=== PATIENT | male | born 1955 | race Caucasian/White ===

== ENCOUNTER 2016-05-01 11:10 | Inpatient (IN) | payer OTHER, MEDICARE ==
[2016-05-01] VITALS (7 sets, daily range): BP systolic 131–153; BP diastolic 70–82
[~2016-05-01] VITALS: Ht 172.7 cm; Wt 123.2 kg
[~2016-05-01 11:10] MED LIST: ALEV220C2 PO; ASPI81TA85 PO; GABA-283 PO; LOVA20TA2 PO; MULTCAP12 PO; NICOTINE 14 MG/24 HR TRANSDERMAL TD SCH; VALS1TAB47 PO
[2016-05-01] MEDS ORDERED: NORCO, ANEXSIA 5/325MG TABLET (HYDROcodone/ACETAMINOPHEN) As Ordered ONE (11:45)
[2016-05-01] MEDS ORDERED: MORPHINE 4 MG/ML 1ML SYRINGE As Ordered ONE (12:17)
--- NOTE | 2016-05-01 12:24 | REP ---
Four view left femur series 05/01/2016 Indication: Trauma Findings: Displaced spiral fracture is noted within the mid to distal femoral shaft with medial displacement by one shaft width and mild posterior displacement and posterior angulation of distal fracture fragment. There is small amount of foreshortening of fracture fragments as well. The left hip is without acute fracture or dislocation Multiple surgical clips are projected over the lower central pelvis in the area of prostate. Impression: Displaced mid to distal left femoral shaft spiral fracture, with alignment as above. Signed by Elo Mares MD 05/01/2016 12:15 P
[2016-05-01 12:45] LABS: BASO # 0.1 K/mm3 (0.0-0.2); BASO % 0.5 % (0.0-1.0); EOS # 0.4 K/mm3 (0.0-0.50); EOS % 3.9 % (0.0-3.0); LARGE UNSTAINED CELL # 0.2 K/mm3 (0.0-0.4); LARGE UNSTAINED CELL % 1.8 % (0.0-4.0); LYMPH # 1.4 K/mm3 (1.5-4.5); LYMPH % 12.4 % (24.0-44.0); MEAN CORPUSCULAR HEMOGLOBIN 31.2 pg (27.0-33.0); MEAN CORPUSCULAR HGB CONC 34.4 g/dl (32.0-36.5); MEAN CORPUSCULAR VOLUME 90.8 fl (80.0-96.0); MONO # 0.5 K/mm3 (0.0-0.8); MONO % 4.7 % (0.0-5.0); NEUTROPHILS # 8.8 K/mm3 (1.8-7.7); NEUTROPHILS % 76.7 % (36.0-66.0); PLATELET COUNT, AUTOMATED 247 k/mm3 (150-450); RED CELL DISTRIBUTION WIDTH 12.6 % (11.5-14.5); WHITE BLOOD COUNT 11.5 K/mm3 (4.0-10.0)
[2016-05-01 12:51] LABS: INR 0.9
[2016-05-01] MEDS ORDERED: NORC5TAB PO (12:52)
[2016-05-01] MEDS ORDERED: VITMTA PO (12:52)
[2016-05-01] MEDS ORDERED: GABA300C3 PO (12:52)
[2016-05-01] MEDS ORDERED: MORPHINE 2 MG/ML 1ML SYRINGE IV PRN (13:00)
[2016-05-01] MEDS ORDERED: ACETAMINOPHEN TAB 650MG DOSE (2X325MG) PO PRN (13:00)
[2016-05-01] MEDS ORDERED: PERCOCET 5MG/325MG TAB PO PRN ×2 (13:00→18:00)
[2016-05-01] MEDS ORDERED: ONDANSETRON 4MG/2ML VIAL (J2405) IV PRN ×2 (13:00→18:00)
[2016-05-01 13:02] LABS: ANION GAP 10 MEQ/L (8-16); BLOOD UREA NITROGEN 16 MG/DL (7-18); CALCIUM LEVEL 9.1 MG/DL (8.8-10.2); CARBON DIOXIDE LEVEL 25 MEQ/L (21-32); CHLORIDE LEVEL 104 MEQ/L (98-107); CREATININE FOR GFR 1.16 MG/DL (0.70-1.30); GLOMERULAR FILTRATION RATE > 60.0 (>49); GLUCOSE, FASTING 106 MG/DL (80-110); POTASSIUM SERUM 4.5 MEQ/L (3.5-5.1); SODIUM LEVEL 139 MEQ/L (136-145)
[2016-05-01] MEDS ORDERED: PROA1AER INH (13:03)
--- NOTE | 2016-05-01 13:31 | REP ---
TWO VIEW CHEST: Two views of the chest are performed. The left costophrenic angle is not visualized. The AP film is taken in a somewhat apical lordotic projection. No acute infiltrate is seen. There is elevation of the right hemidiaphragm, unchanged. The mediastinal silhouette is unchanged. The heart appears magnified. There are mild degenerative changes of the spine. IMPRESSION: Somewhat limited exam but no definite acute pulmonary disease. Signed by Mikey Hammond MD 05/01/2016 03:22 P
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
--- NOTE | 2016-05-01 14:04 | EDDOCDS ---
Nurse's Notes [facility] Name: Chencho Newman Age: 60 yrs Sex: Male : 1955 Arrival Date: 05/01/2016 Time: 11:10 Bed I6 Private MD: Nicolette Frazier E Diagnosis: Displaced transverse fracture of shaft of left femur;Fall due to ice and snow Presentation: 05/01 11:18 Presenting complaint: EMS states: pt was working and slipped and fell on ice and he dsf twisted his let prosthetic leg. pt c/o left quadriceps pain. Adult Sepsis Screening: The patient does not have new or worsening altered mentation. Patient's respiratory rate is less than 22. Systolic blood pressure is greater than 100. Patient has a qSOFA score of 0- Negative Sepsis Screen. Suicide/Homicide risk assessment- the patient denies having any suicidal and/or homicidal ideations and does not present with any other emotional, behavioral or mental health complaints. 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 Transition of care: patient was not received from another setting of care. 11:18 Acuity: CARLOS Level 4 dsf 11:18 Method Of Arrival: Ambulance dsf Triage Assessment: 11:24 General: Appears in no apparent distress, Behavior is appropriate for age, cooperative. dsf Pain: Location: left quadriceps and left knee Pain currently is 9 out of 10 on a pain scale. Quality of pain is described as sharp. Pt Declines HIV testing. Musculoskeletal: Reports pain in left quadriceps and left knee. Historical: - Allergies: no known allergies; - Home Meds: 1. valsartan 160 mg oral tab 1 tab once daily 2. multivitamin Oral tab 1 tablet daily (Last dose: 05/01/2016 05:30) 3. aspirin 81 mg Oral tab 1 tab once daily (Last dose: 05/01/2016 05:30) 4. Aleve 220 mg Oral tab 2 tab daily 5. lovastatin 20 mg Oral tab 1 tab once daily 6. gabapentin 300 mg Oral cap 2 caps as needed 7. hydrocodone 5 mg twice a day (Last dose: 05/01/2016 09:30) - PMHx: Hypercholesterolemia; Hypertension; - PSHx: Cataract Surgery- Left; left leg surgery; Carpal Tunnel Repair- Right; Tonsillectomy; - Social history: Smoking status: Patient uses tobacco products, current some day smoker. No barriers to communication noted, The patient speaks fluent Croatian, Speaks appropriately for age. - Family history: Not pertinent. - : The pt / caregiver states he / she is not on anticoagulants. Home medication list is obtained from the patient. - Exposure Risk Screening:: None identified. Screenin:49 Screening information is obtained from the patient. Fall risk: No risks identified. kr3 Assistance ADL's: requires no assistance with activities of daily living. Abuse/DV Screen: The patient / caregiver reports he/she is: not in a situation that causes fear, pain or injury. Nutritional screening: No deficits noted. Advance Directives: Currently, there is no health care proxy. home support is adequate. Assessment: 11:48 General: Appears in no apparent distress, Behavior is cooperative. Pain: Location: left kr3 quadriceps Pain currently is 10 out of 10 on a pain scale. Musculoskeletal: pain left thigh. 12:34 General: Appears in no apparent distress, well nourished, well groomed, Behavior is ttb appropriate for age, cooperative, pleasant. Pain: Location: left femur only with movement. Neurological: Level of Consciousness is awake, alert, Oriented to person, place, time, Speech is normal, Facial symmetry appears normal. Cardiovascular: Chest pain is denied. Respiratory: No deficits noted. Airway is patent Respiratory effort is even, unlabored, Denies cough, shortness of breath. GI: Denies nausea, vomiting, pain. Derm: Skin is normal. Injury Description: pt fell from standing. 13:35 General: Appears in no apparent distress, Behavior is appropriate for age, resting rs3 comfortable. pain remains same. admitting provider with patient. Ordered ECG done. . 13:59 Reassessment: Patient appears in no apparent distress at this time. pt continues to be ttb comfortable with no movement. Pain with movement reported. NAD while laying on stretcher. PA in speaking with pt. Admission RN in with pt at this time as well. OR calling stating ready for pt. remains at bedside. Questions addressed.. Neurological: Level of Consciousness is awake, alert. Cardiovascular: Chest pain is denied. Respiratory: No deficits noted. Airway is patent Respiratory effort is even, unlabored, Denies cough, shortness of breath. GI: Denies nausea, vomiting. 13:59 General: pt taken to CT then to OR.. ttb Vital Signs: 11:14 BP 163 / 82; Pulse 78; Resp 18; Temp 97.0(T); Pulse Ox 95% on R/A; Weight 120.2 kg; [facility] Height 5 ft. 8 in. (172.72 cm); Pain 10/10; 13:56 BP 139 / 75; Pulse 75; Resp 18; Temp 98.0; Pulse Ox 98% on R/A; Pain 0/10; ttb 11:14 Body Mass Index 40.29 (120.20 kg, 172.72 cm) [facility] Vitals: 11:14 Log In Time N/A - ambulance arrival. [facility] ED Course: 11:13 Patient visited by Ever Kruse. dem1 11:13 Nicolette Frazier is Private Physician. [facility] 11:13 Patient moved to Waiting dem1 11:14 Patient moved to Pre RCE dem1 11:19 Triage Initiated dsf 11:25 Patient moved to Triage 2 dsf 11:28 Dannie Ash PA-C is PHCP. cc10 11:28 Ya Casiano MD is Attending Physician. cc10 11:30 Patient visited by Dannie Ash PA-C. cc10 11:30 Patient visited by Dannie Ash PA-C. cc10 11:48 Patient moved to TR1 dsf 11:49 The patient / caregiver is instructed regarding the plan of care and ED course. Patient kr3 has correct armband on for positive identification. 11:58 Patient moved to I / kr3 12:29 Kevan Mccurdy DO is Hospitalizing Provider. cc10 12:33 Type & Screen Sent. ttb 12:33 Pt & Aptt Sent. ttb 12:34 BMP Sent. ttb 12:34 CBC with Diff Sent. ttb 12:34 Inserted peripheral IV: 20gauge IV in right antecubital area and blood collected. ttb Patient tolerated the procedure well. Labs drawn. (by ED staff). 12:35 Patient visited by Nereida Vasquez RN. ttb 12:35 Femur Returned. EDMS 12:40 Patient visited by Paige Amos RN. dmr 13:04 [facility] Payment Agreement was scanned into [employer] and attached to record. mm15 13:55 Admission Orders was scanned into [employer] and attached to record. jrd 13:58 No procedures done that require assistance. ttb 14:03 Chest, 2 View (pa\E\lat) Returned. EDMS Administered Medications: 11:48 Drug: HYDROcodone-acetaminophen 1 tabs [hydrocodone 5 mg-acetaminophen 325 mg tablet (1 kr3 tabs)] Route: PO; 12:30 Drug: NS 0.9% 1000 ml [sodium chloride 0.9 % intravenous solution] Route: IV; Rate: 250 ttb mL/hr; Site: right antecubital; 12:30 Drug: morphine 4 mg [morphine 4 mg/mL intravenous cartridge (1 mL)] Route: IVP; Site: ttb right antecubital; Order Results: Lab Order: CBC with Diff; SPEC'M 05/01/16 12:31 Test: WHITE BLOOD COUNT; Value: 11.5; Range: 4.0-10.0; Abnormal: Above high normal; Units: K/mm3; Status: F Test: RED BLOOD COUNT; Value: 4.87; Range: 4.30-6.10; Units: M/mm3; Status: F Test: HEMOGLOBIN; Value: 15.2; Range: 14.0-18.0; Units: g/dl; Status: F Test: HEMATOCRIT; Value: 44.2; Range: 42.0-52.0; Units: %; Status: F Test: MEAN CORPUSCULAR VOLUME; Value: 90.8; Range: 80.0-96.0; Units: fl; Status: F Test: MEAN CORPUSCULAR HEMOGLOBIN; Value: 31.2; Range: 27.0-33.0; Units: pg; Status: F Test: MEAN CORPUSCULAR HGB CONC; Value: 34.4; Range: 32.0-36.5; Units: g/dl; Status: F Test: RED CELL DISTRIBUTION WIDTH; Value: 12.6; Range: 11.5-14.5; Units: %; Status: F Test: PLATELET COUNT, AUTOMATED; Value: 247; Range: 150-450; Units: k/mm3; Status: F Test: NEUTROPHILS %; Value: 76.7; Range: 36.0-66.0; Abnormal: Above high normal; Units: %; Status: F Test: LYMPH %; Value: 12.4; Range: 24.0-44.0; Abnormal: Below low normal; Units: %; Status: F Test: MONO %; Value: 4.7; Range: 0.0-5.0; Units: %; Status: F Test: EOS %; Value: 3.9; Range: 0.0-3.0; Abnormal: Above high normal; Units: %; Status: F Test: BASO %; Value: 0.5; Range: 0.0-1.0; Units: %; Status: F Test: LARGE UNSTAINED CELL %; Value: 1.8; Range: 0.0-4.0; Units: %; Status: F Test: NEUTROPHILS #; Value: 8.8; Range: 1.8-7.7; Abnormal: Above high normal; Units: K/mm3; Status: F Test: LYMPH #; Value: 1.4; Range: 1.5-4.5; Abnormal: Below low normal; Units: K/mm3; Status: F Test: MONO #; Value: 0.5; Range: 0.0-0.8; Units: K/mm3; Status: F Test: EOS #; Value: 0.4; Range: 0.0-0.50; Units: K/mm3; Status: F Test: BASO #; Value: 0.1; Range: 0.0-0.2; Units: K/mm3; Status: F Test: LARGE UNSTAINED CELL #; Value: 0.2; Range: 0.0-0.4; Units: K/mm3; Status: F Lab Order: [facility]; SPEC'M 05/01/16 12:31 Test: GLUCOSE, FASTING; Value: 106; Range: 80-110; Units: MG/DL; Status: F Test: BLOOD UREA NITROGEN; Value: 16; Range: 7-18; Units: MG/DL; Status: F Test: CREATININE FOR GFR; Value: 1.16; Range: 0.70-1.30; Units: MG/DL; Status: F Test: GLOMERULAR FILTRATION RATE; Value: > 60.0; Range: >49; Status: F Test: SODIUM LEVEL; Value: 139; Range: 136-145; Units: MEQ/L; Status: F Test: POTASSIUM SERUM; Value: 4.5; Range: 3.5-5.1; Units: MEQ/L; Status: F Test: CHLORIDE LEVEL; Value: 104; Range: 98-107; Units: MEQ/L; Status: F Test: CARBON DIOXIDE LEVEL; Value: 25; Range: 21-32; Units: MEQ/L; Status: F Test: ANION GAP; Value: 10; Range: 8-16; Units: MEQ/L; Status: F Test: CALCIUM LEVEL; Value: 9.1; Range: 8.8-10.2; Units: MG/DL; Status: F Test Note: ; Units are mL/min/1.73 m2 Chronic Kidney Disease Staging per NKF: Stage I & II GFR >=60 Normal to Mildly Decreased Stage III GFR 30-59 Moderately Decreased Stage IV GFR 15-29 Severely Decreased Stage V GFR <15 Very Little GFR Left ESRD GFR <15 on NAPRAPATH Lab Order: Pt & Aptt; SPEC'M 05/01/16 12:31 Test: PROTHROMBIN TIME; Value: 12.3; Range: 12.3-14.5; Units: SECONDS; Status: F Test: INR; Value: 0.90; Status: F Test: PARTIAL THROMBOPLASTIN TIME; Value: 25.1; Range: 26.6-37.1; Abnormal: Below low normal; Units: SECONDS; Status: F Test Note: ; THERAPUTIC HUMAN INR VALUES INDICATIONS NORMAL RANGES PROPHYLAXIS/TREATMENT OF: VENOUS THROMBOSIS 2.0-3.0 PULMONARY EMBOLISM 2.0-3.0 PREVENTION OF SYSTEMIC EMBOLISM FROM: TISSUE HEART VALVES 2.0-3.0 ACUTE MYOCARDIAL INFARCTION 2.0-3.0 VALVULAR HEART DISEASE 2.0-3.0 ATRIAL FIBRILLATION 2.0-3.0 MECHANICAL VALVES(HIGH RISK) 2.5-3.5 RECURRENT MYOCARDIAL INFARCTION 2.5-3.5 Lab Order: Type & Screen; SPEC'M 05/01/16 13:25 Test: BLOOD TYPE; Value: A POS; Status: F Radiology Order: Femur Test: Femur REASON FOR EXAMINATION: Trauma; Four view left femur series 05/01/2016; ; Indication: Trauma; ; Findings: Displaced spiral fracture is noted within the mid to distal femoral; shaft with medial displacement by one shaft width and mild posterior displacement; and posterior angulation of distal fracture fragment. There is small amount of; foreshortening of fracture fragments as well.; ; The left hip is without acute fracture or dislocation; ; Multiple surgical clips are projected over the lower central pelvis in the area; of prostate.; ; Impression: Displaced mid to distal left femoral shaft spiral fracture, with; alignment as above.; ; ; Signed by; Elo Mares MD 05/01/2016 12:15 P; Radiology Order: Chest, 2 View (pa\E\lat) Test: Chest, 2 View (pa\E\lat) REASON FOR EXAMINATION: pre-op; TWO VIEW CHEST:; ; Two views of the chest are performed. The left costophrenic angle is not; visualized. The AP film is taken in a somewhat apical lordotic projection. No; acute infiltrate is seen. There is elevation of the right hemidiaphragm,; unchanged. The mediastinal silhouette is unchanged. The heart appears; magnified. There are mild degenerative changes of the spine.; ; IMPRESSION:; Somewhat limited exam but no definite acute pulmonary disease.; ; Unreviewed; Outcome: 12:29 Decision to Hospitalize by Provider. cc10 13:56 Discharge Assessment: Patient awake, alert and oriented x 3. No cognitive and/or ttb functional deficits noted. Patient verbalized understanding of disposition instructions. Patient awake and alert. patient administered narcotics - yes. Patient was admitted to the hospital or transferred to another facility. The following High Risk Discharge criteria are identified: Yes, admit to OR. Admitted to OR accompanied by nurse, family with patient, via stretcher, with chart. Condition: stable. Instructed on Admission process / OR admission process. Property given to family member, has clothing, watch, gold ring. 13:59 CT Study completed. ttb 14:03 Patient left the ED. ttb Signatures: Dispatcher [employer] EDMS Paige AmosRN RN [facility] Ryann PopeRN RN angelika3 Kaylee Hoover RN RN rs3 Bushra Masterson RN RN dsf Mack, Demeishia dem1 Conner, Teresa, RN RN ttb Damaris Gutierrez mm15 Dannie Ash, PA-C PA-C cc10 Juan Valdez PCA PCA jrd Corrections: (The following items were deleted from the chart) 13:59 13:56 No special radiology studies were completed ttb ttb MTDD
--- NOTE | 2016-05-01 14:04 | EDDOCDS ---
Physician Documentation [facility] Name: Chencho Newman Age: 60 yrs Sex: Male : 1955 Arrival Date: 05/01/2016 Time: 11:10 Bed I6 / Private MD: Nicolette Frazier E Disposition: 05/01/16 12:29 Hospitalization ordered by Kevan Mccurdy for Inpatient Admission. Preliminary diagnosis are Displaced transverse fracture of shaft of left femur, Fall due to ice and snow. - Bed requested for 5 [place]. - Status is Inpatient Admission. ttb - Condition is Stable. - Problem is new. - Symptoms have improved. Historical: - Allergies: no known allergies; - Home Meds: 1. valsartan 160 mg oral tab 1 tab once daily 2. multivitamin Oral tab 1 tablet daily (Last dose: 05/01/2016 05:30) 3. aspirin 81 mg Oral tab 1 tab once daily (Last dose: 05/01/2016 05:30) 4. Aleve 220 mg Oral tab 2 tab daily 5. lovastatin 20 mg Oral tab 1 tab once daily 6. gabapentin 300 mg Oral cap 2 caps as needed 7. hydrocodone 5 mg twice a day (Last dose: 05/01/2016 09:30) - PMHx: Hypercholesterolemia; Hypertension; - PSHx: Cataract Surgery- Left; left leg surgery; Carpal Tunnel Repair- Right; Tonsillectomy; - Social history: Smoking status: Patient uses tobacco products, current some day smoker. No barriers to communication noted, The patient speaks fluent Lithuanian, Speaks appropriately for age. - Family history: Not pertinent. - : The pt / caregiver states he / she is not on anticoagulants. Home medication list is obtained from the patient. - Exposure Risk Screening:: None identified. Vital Signs: 05/01 11:14 BP 163 / 82; Pulse 78; Resp 18; Temp 97.0(T); Pulse Ox 95% on R/A; Weight 120.2 kg / dem1 265 lbs; Height 5 ft. 8 in. (172.72 cm); Pain 10/10; 13:56 BP 139 / 75; Pulse 75; Resp 18; Temp 98.0; Pulse Ox 98% on R/A; Pain 0/10; ttb 11:14 Body Mass Index 40.29 (120.20 kg, 172.72 cm) dem1 MDM: 11:34 HYDROcodone-acetaminophen 5 mg-325 mg 1 tabs PO once ordered. cc10 11:35 Femur Ordered. EDMS 12:00 NOTHING BY MOUTH+DIET ordered. EDMS 12:10 IV Saline Lock ordered. cc10 12:10 NS 0.9% 1000 ml IV at 250 mL/hr continuous ordered. cc10 12:11 morphine 4 mg IVP once ordered. cc10 12:11 CBC with Diff Ordered. EDMS 12:11 BMP Ordered. EDMS 12:11 Pt & Aptt Ordered. EDMS 12:11 Type & Screen Ordered. EDMS 12:24 Chest, 2 View (pa\E\lat) Ordered. EDMS 12:24 Misc Manual Arts Therapy Teacher Order ordered. cc10 12:24 Misc Manual Arts Therapy Teacher Order ordered. cc10 12:26 ECG WITH READING ER PHYS+CARDIAG ordered. EDMS 12:36 BED REQUEST+ADM ordered. EDMS 13:00 Financial registration complete. mm15 13:01 PHYSICAL THERAPY EVAL & TREAT ordered. EDMS 13:02 Admission / Observation Status ordered. EDMS 13:02 NPO DIET ordered. EDMS 13:04 [facility] Payment Agreement was scanned into [employer] and attached to record. mm15 13:46 Femur Ordered. EDMS 13:49 Misc Manual Arts Therapy Teacher Order complete. jrd 13:49 [facility] Order complete. jrd 13:50 CT-Femur WITHOUT CONTRAST Ordered. EDMS 13:55 Admission Orders was scanned into [employer] and attached to record. jrd Administered Medications: 11:48 Drug: HYDROcodone-acetaminophen 1 tabs [hydrocodone 5 mg-acetaminophen 325 mg tablet (1 kr3 tabs)] Route: PO; 12:30 Drug: NS 0.9% 1000 ml [sodium chloride 0.9 % intravenous solution] Route: IV; Rate: 250 ttb mL/hr; Site: right antecubital; 12:30 Drug: morphine 4 mg [morphine 4 mg/mL intravenous cartridge (1 mL)] Route: IVP; Site: ttb right antecubital; Signatures: Dispatcher [employer] EDMS Beth Guillen RN RN mcp Fuller, Desiree, RN RN dsf Conner, Teresa, RN RN ttb Damaris Gutierrez mm15 Dannie Ash PA-C PA-C cc10 Juan Valdez, DESIGN ENGINEER AGRICULTURAL EQUIPMENT DESIGN ENGINEER AGRICULTURAL EQUIPMENT jrd Ryann Pope RN kr3 The chart was reviewed and I authenticate all verbal orders and agree with the evaluation and treatment provided.Attachments: 13:04 [facility] Payment Agreement mm15 13:55 Admission Orders jrd MTDD
[2016-05-01] MEDS ORDERED: ALBUTEROL 90 MCG/ACT 8GM HFA INHALER INH PRN (14:15)
[2016-05-01] MEDS ORDERED: MIDAZOLAM INJ 2 MG/2 ML VIAL (J2250) As Ordered ONE (14:30)
[2016-05-01] MEDS ORDERED: fentaNYL 100 MCG/2 ML INJECTION (J3010) As Ordered ONE (14:30)
[2016-05-01] MEDS ORDERED: ceFAZolin 2 GM/D5W 50 ML IV BAG (J0690) As Ordered ONE (14:51)
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
--- NOTE | 2016-05-01 15:05 | REP ---
CT of the left femur 05/01/2016 Indication: Fall, injury Comparison: Radiographs of the left femur performed earlier today Technique: 3 mm continuous spiral axial sections were through the left lower pelvis and left femur without contrast. Sagittal and coronal reconstructed images were subsequently created provided for interpretation Findings: The left hip is without acute fracture dislocation. Included portions of the left winnie pelvis are intact. There is a spiral displaced fracture of the distal third femoral shaft with medial displacement of distal fracture fragment by one shaft with and with less posterior displacement and posterior angulation distal fracture fragment. The visualized portions of the left hip, acetabulum, superior pubic rami appear intact and the visualized portion Impression 1. Displaced spiral fracture of the distal third left femur; alignment is mildly improved, yet further reduction is needed Signed by Elo Mares MD 05/01/2016 02:56 P
[2016-05-01] MEDS ORDERED: BUPIVACAINE/EPIN 0.25% 30 ML VIAL As Ordered ONE (15:53)
[2016-05-01] MEDS ORDERED: PROPOFOL 200 MG/20 ML VIAL As Ordered ONE (15:54)
[2016-05-01] MEDS ORDERED: ceFAZolin 1GM INJ (J0690) As Ordered ONE (16:05)
[2016-05-01] MEDS ORDERED: PHENYLephrine HCL 500 MCG/5 ML (100MCG/ML) SYRINGE (J2370) As Ordered ONE (16:17)
[2016-05-01] MEDS ORDERED: BUPIVACAINE/EPIN 0.25% 30 ML VIAL XX ONE (17:07)
[2016-05-01] MEDS ORDERED: ceFAZolin 1GM INJ (J0690) XX ONE (17:07)
--- NOTE | 2016-05-01 17:48 | REP ---
C-arm views of the mid to distal left femur 05/01/2016 Indication left femur fracture Comparison: CT left femur 05/01/2016 as well as left femur radiographs 05/01/2016 42 seconds of c-arm fluoroscopy time were provided to of Department of Othopedic Surgery who performed ORIF of the mid to distal left femur for spiral fracture. There is a lateral mid to distal femoral side plate with multiple transverse interlocking screws. The alignment is anatomic in the visualized/included portions of the left mid to distal femur. Seven images were recorded and are available for review on PACS. Impression: Status post ORIF of the left femur for displaced mid to distal spiral fracture. The included portions of the left femur are in anatomic alignment post ORIF Signed by Elo Mares MD 05/01/2016 05:40 P
[2016-05-01] MEDS ORDERED: LR 1,000 ML IV SCH (18:00)
[2016-05-01] MEDS ORDERED: fentaNYL 100 MCG/2 ML INJECTION (J3010) IV PRN (18:00)
[2016-05-01] MEDS ORDERED: METOCLOPRAMIDE INJ 10MG/2ML VIAL (J2765) IV PRN (18:00)
[2016-05-01] MEDS ORDERED: D5W/0.45% SODIUM CHLORIDE 1,000 ML IV SCH (18:00)
[2016-05-01] MEDS ORDERED: PROMETHAZINE INJ 25 MG/ML VIAL (J2550) IV PRN (18:00)
[2016-05-01] MEDS ORDERED: MEPERIDINE INJ 25 MG/ML VIAL (J2175) IV PRN (18:00)
[2016-05-01] MEDS: HYDROmorphone HCL 1 MG/ML SYRINGE (J1170) IV PRN ×2 (18:57→22:12)
[2016-05-01] MEDS: SIMVASTATIN 20 MG TAB PO SCH (20:26)
[2016-05-01] MEDS: DOCUSATE SODIUM 100 MG CAP PO SCH (20:26)
[2016-05-01] MEDS: PERCOCET 5MG/325MG TAB PO PRN (20:28)
[2016-05-02] MEDS: PERCOCET 5MG/325MG TAB PO PRN ×5 (00:28→20:15)
--- NOTE | 2016-05-02 02:24 | CR ---
DATE OF CONSULTATION: 05/01/2016 This patient was seen to evaluate left distal femur fracture. Initially, the patient was seen today by our physician car rental sales assistant, Betsy Zhu PA-C and I supervised and reviewed her documentation, which was accurate. In addition to this, I did appreciate that the patient had in his amputation stump an anterior distal wound, which had been present longstanding. When the patient was seen and evaluated, I did discuss the distal wound as well as the procedure we are proposing and I did complete a consent document which involved a cecilio discussion of the procedure proposed, alternatives including doing nothing and risks including, but not limited to pain, failure, need for more surgery, infection and other issues. I specifically talked to the patient about the increased risk of infection at this distal wound and he does understand. The patient's distal stump has been managed in the past by Dr. Tyshawn Bailey, who has operated in this area. We may need to have the patient seen for medical charge entry specialist and/or Dr. Bailey and with respect to try to get this wound to close. I have also talked to the patient about his smoking habits and encouraged him strongly to engage in smoking cessation since both the healing of his distal femoral fracture, as well as the distal wound probably depends on his smoking cessation. For further details, please refer to the medical record, as well as physician car rental sales assistant Marko's notes.
[2016-05-02 03:00] VITALS: BP 138/74
[2016-05-02] MEDS: HYDROmorphone HCL 1 MG/ML SYRINGE (J1170) IV PRN ×3 (03:45→13:26)
[2016-05-02 06:00] VITALS: BP 174/85
[2016-05-02 07:04] LABS: MEAN CORPUSCULAR HEMOGLOBIN 30.9 pg (27.0-33.0); MEAN CORPUSCULAR HGB CONC 32.8 g/dl (32.0-36.5); MEAN CORPUSCULAR VOLUME 94.1 fl (80.0-96.0); RED CELL DISTRIBUTION WIDTH 13.6 % (11.5-14.5); WHITE BLOOD COUNT 11.1 K/mm3 (4.0-10.0)
[2016-05-02 07:19] LABS: ANION GAP 7 MEQ/L (8-16); BLOOD UREA NITROGEN 15 MG/DL (7-18); CALCIUM LEVEL 8.7 MG/DL (8.8-10.2); CARBON DIOXIDE LEVEL 30 MEQ/L (21-32); CHLORIDE LEVEL 102 MEQ/L (98-107); CREATININE FOR GFR 1.06 MG/DL (0.70-1.30); GLOMERULAR FILTRATION RATE > 60.0 (>49); GLUCOSE, FASTING 115 MG/DL (80-110); POTASSIUM SERUM 4.2 MEQ/L (3.5-5.1); SODIUM LEVEL 139 MEQ/L (136-145)
[2016-05-02] MEDS ORDERED: ISOVUE-370 76% 100ML VIAL (Q9967) As Ordered ONE (08:48)
[2016-05-02] MEDS ORDERED: GABAPENTIN 300 MG CAP PO PRN (09:00)
[2016-05-02 10:00] VITALS: BP 143/78
[2016-05-02] MEDS: DOCUSATE SODIUM 100 MG CAP PO SCH ×2 (10:17→20:14)
[2016-05-02] MEDS: MULTIVITAMINS/MINERALS THERAP 1 TAB PO SCH (10:17)
[2016-05-02] MEDS: MIRALAX *UNIT DOSE* 17GM PACKET PO SCH (10:17)
[2016-05-02] MEDS: ASPIRIN 81 MG CHEW TABLET PO SCH (10:18)
[2016-05-02] MEDS: VALSARTAN 80 MG TAB (DIOVAN) PO SCH (10:18)
--- NOTE | 2016-05-02 10:31 | REP ---
LEFT FEMUR, FOUR VIEWS: HISTORY: Fracture. COMPARISON: 05/01/2016. The patient is status post ORIF of a comminuted fracture of the distal femur. A fixation plate and screws are present. There is no dislocation. IMPRESSION: The patient is status post ORIF of a comminuted fracture of the distal femur. There is anatomic alignment. Signed by Hang Osborn MD 05/02/2016 10:33 A
--- NOTE | 2016-05-02 10:52 | REP ---
CTA abdomen and pelvis with bilateral lower extremity arteriogram/runoff: Indication: Prior left [id number] amputation; assess arterial perfusion. Comparison: CT abdomen with and without contrast 03/06/2015 from I. Technique: Following IV contrast administration of 100 ml Isovue 370 mg/ml IV, 3 mm contiguous spiral axial sections were performed of the abdomen pelvis with lower extremity runoff. Findings: The area of parenchymal disease within the right middle lobe most compatible with atelectatic changes and/or scarring does represent interval change. There is minimal dependent atelectasis and/or fibrotic scarring. There is borderline aneurysmal dilatation of the proximal abdominal aorta distal to the aortic root measuring 4 x 4.1 cm. The heart is upper normal size. There is moderate diffuse fatty infiltration of liver. Spleen and pancreas are normal. Gallbladder is mildly distended without visualized stones, wall thickening or biliary dilatation. Minimal thickening of the adrenal glands is noted bilaterally, stable. There is moderate fluid identified within the stomach. The small bowel is without obstruction. The terminal ileum and appendix are without inflammation. Abdominal aorta is of normal course and caliber. Mild atherosclerotic changes are noted in the abdominal aorta. The mesenteric arteries are patent and without focal narrowing. There are a few small retroperitoneal nodes, largest 8 mm diameter at the level of the proximal left common iliac artery. Bilateral common internal and external iliac arteries are patent. There is mild narrowing/attenuation seen diffusely within the left common and left external iliac arteries when compared to the contralateral right side. Bladder is partially contracted and also includes intraluminal air, contributed to by Barron catheter. There is moderate retained stool within the right and proximal transverse colon. Right lower extremity runoff: The right common femoral artery is patent. There is a normal appearing right superficial femoral artery. Profunda femoris artery is patent yet diffusely attenuated. The right proximal mid and distal superficial femoral arteries as well as popliteal arteries are patent. There is two vessel runoff to the right mid calf level with diffusely attenuated peroneal, moderately attenuated anterior tibial, mildly attenuated posterior tibial arteries. There is one vessel runoff to the right ankle with diffusely attenuated posterior tibial artery identified. Left lower extremity runoff: Left common femoral artery is mildly attenuated. There is moderate attenuation/narrowing of the left superficial femoral artery which cannot be seen below the distal superficial femoral artery level. The popliteal artery is occluded. There is no visualized runoff within the below the knee stump with diffusely atrophic calf muscles. There is no radiographic evidence of osteomyelitis. Tiny focus of subcutaneous air is seen at the anterior aspect of the tibial plateau on image 300 series 401. Impression:1. Diffusely attenuated left common femoral and left superficial femoral artery with occlusion above the origin of the left popliteal artery. The patient had prior left [id number] amputation. The patient has recent ORIF of the left femur for displaced spiral fracture. 2. Two vessel runoff to the right mid calf level with diffusely attenuated posterior tibial artery . One vessel runoff at right ankle ( posterior tibial artery) Signed by Elo Mares MD 05/04/2016 08:28 P
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
[2016-05-02] MEDS: SANTYL OINT 30GM TOP SCH (15:36)
[2016-05-02] MEDS ORDERED: WARFARIN SOD 5 MG TAB PO ONE (17:00)
--- NOTE | 2016-05-02 17:23 | REP ---
MRI LEFT LOWER LEG WITH AND WITHOUT GADOLINIUM: Patient is status-post [id number]-[id number] amputation. The remaining portion of the proximal left lower leg is imaged with the following sequences obtained: Axial T1, T2 STIR, sagittal T2 STIR, coronal STIR, sagittal T1 fat sat, post-IV gadolinium, sagittal and axial T1 fat sat with the intravenous administration of 24 mL of gadolinium. The remaining portion of the proximal tibia demonstrates central linear high signal on T2 and low signal on T1 compatible with a fluid filled central sinus tract. There is no bone marrow edema. There is no occult fracture. There is no abnormal enhancement or evidence of osteomyelitis. The proximal fibula also demonstrates no abnormal signal or enhancement. There is no current evidence of acute osteomyelitis. Ill-defined high signal is seen in the subcutaneous soft-tissues predominately anteriorly with some possible subtle areas of enhancement and possibly an element of cellulitis. A small pocket of fluid is seen in the distal soft-tissue just beneath the skin, measuring 9 mm in maximum diameter. No other fluid collection is seen. The central sinus tract filled with fluid in the proximal tibia has a diameter of approximately 1 cm maximally. IMPRESSION: Central fluid filled sinus tract in the remaining portion of the tibia, likely the sequela of chronic osteomyelitis. I do not see MR evidence of acute osteomyelitis at this time. Soft tissue edema with some possible subtle areas of enhancement and cellulitis. Small pocket of fluid is seen in the distal soft-tissue of the remaining left lower leg stump measuring about 9 mm in diameter. This could possibly represent a tiny abscess. Signed by Mikey Hammond MD 05/02/2016 05:29 P
[2016-05-02] MEDS: SIMVASTATIN 20 MG TAB PO SCH (20:14)
[2016-05-02 22:00] VITALS: BP 140/68
[2016-05-03] MEDS: PERCOCET 5MG/325MG TAB PO PRN ×5 (01:44→18:19)
[2016-05-03 06:00] VITALS: BP 130/77
[2016-05-03 06:49] LABS: MEAN CORPUSCULAR HEMOGLOBIN 30.8 pg (27.0-33.0); MEAN CORPUSCULAR HGB CONC 33.1 g/dl (32.0-36.5); MEAN CORPUSCULAR VOLUME 93.1 fl (80.0-96.0); RED CELL DISTRIBUTION WIDTH 13.7 % (11.5-14.5); WHITE BLOOD COUNT 10.4 K/mm3 (4.0-10.0)
[2016-05-03 06:55] LABS: INR 1.12
[2016-05-03 07:01] LABS: ANION GAP 5 MEQ/L (8-16); BLOOD UREA NITROGEN 16 MG/DL (7-18); CALCIUM LEVEL 8.8 MG/DL (8.8-10.2); CARBON DIOXIDE LEVEL 29 MEQ/L (21-32); CHLORIDE LEVEL 106 MEQ/L (98-107); CREATININE FOR GFR 0.85 MG/DL (0.70-1.30); GLOMERULAR FILTRATION RATE > 60.0 (>49); GLUCOSE, FASTING 101 MG/DL (80-110); POTASSIUM SERUM 4.3 MEQ/L (3.5-5.1); SODIUM LEVEL 140 MEQ/L (136-145)
--- NOTE | 2016-05-03 08:14 | ECGEPIP ---
Stationary ECG Study [facility] - ED Test Date: 2016-05-01 Pat Name: DERICK MILLER Department: Room: [place] [address] Gender: M Varnisher: milagros : 1955 Requested By: Dannie Ash PA-C Order Number: [id number] Reading MD: Adela Martines Measurements Intervals [place] Rate: 82 P: 56 ND: 160 QRS: 57 QRSD: 108 T: 8 QT: 361 QTc: 422 Interpretive Statements SINUS RHYTHM NSTTW ABNORMALITY DECREASED RATE/ECTOPY 05/26/14 Electronically Signed On 05-03-2016 8:13:54 EST by Adela Martines
[2016-05-03] MEDS: ASPIRIN 81 MG CHEW TABLET PO SCH (09:59)
[2016-05-03] MEDS: DOCUSATE SODIUM 100 MG CAP PO SCH ×2 (09:59→20:23)
[2016-05-03] MEDS: VALSARTAN 80 MG TAB (DIOVAN) PO SCH (10:00)
[2016-05-03] MEDS: MULTIVITAMINS/MINERALS THERAP 1 TAB PO SCH (10:00)
[2016-05-03] MEDS: MIRALAX *UNIT DOSE* 17GM PACKET PO SCH (10:01)
[2016-05-03] MEDS: SANTYL OINT 30GM TOP SCH (10:02)
[2016-05-03 14:00] VITALS: BP 152/73
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
--- NOTE | 2016-05-03 15:05 | EDDOCDS ---
Nurse's Notes [facility] Name: Chencho Newman Age: 60 yrs Sex: Male : 1955 Arrival Date: 05/01/2016 Time: 11:10 Bed I6 Private MD: Nicolette Frazier E Diagnosis: Displaced transverse fracture of shaft of left femur;Fall due to ice and snow Presentation: 05/01 11:18 Presenting complaint: EMS states: pt was working and slipped and fell on ice and he dsf twisted his let prosthetic leg. pt c/o left quadriceps pain. Adult Sepsis Screening: The patient does not have new or worsening altered mentation. Patient's respiratory rate is less than 22. Systolic blood pressure is greater than 100. Patient has a qSOFA score of 0- Negative Sepsis Screen. Suicide/Homicide risk assessment- the patient denies having any suicidal and/or homicidal ideations and does not present with any other emotional, behavioral or mental health complaints. 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 Transition of care: patient was not received from another setting of care. 11:18 Acuity: CARLOS Level 4 dsf 11:18 Method Of Arrival: Ambulance dsf Triage Assessment: 11:24 General: Appears in no apparent distress, Behavior is appropriate for age, cooperative. dsf Pain: Location: left quadriceps and left knee Pain currently is 9 out of 10 on a pain scale. Quality of pain is described as sharp. Pt Declines HIV testing. Musculoskeletal: Reports pain in left quadriceps and left knee. Historical: - Allergies: no known allergies; - Home Meds: 1. valsartan 160 mg oral tab 1 tab once daily 2. multivitamin Oral tab 1 tablet daily (Last dose: 05/01/2016 05:30) 3. aspirin 81 mg Oral tab 1 tab once daily (Last dose: 05/01/2016 05:30) 4. Aleve 220 mg Oral tab 2 tab daily 5. lovastatin 20 mg Oral tab 1 tab once daily 6. gabapentin 300 mg Oral cap 2 caps as needed 7. hydrocodone 5 mg twice a day (Last dose: 05/01/2016 09:30) - PMHx: Hypercholesterolemia; Hypertension; - PSHx: Cataract Surgery- Left; left leg surgery; Carpal Tunnel Repair- Right; Tonsillectomy; - Social history: Smoking status: Patient uses tobacco products, current some day smoker. No barriers to communication noted, The patient speaks fluent Romanian, Speaks appropriately for age. - Family history: Not pertinent. - : The pt / caregiver states he / she is not on anticoagulants. Home medication list is obtained from the patient. - Exposure Risk Screening:: None identified. Screenin:49 Screening information is obtained from the patient. Fall risk: No risks identified. kr3 Assistance ADL's: requires no assistance with activities of daily living. Abuse/DV Screen: The patient / caregiver reports he/she is: not in a situation that causes fear, pain or injury. Nutritional screening: No deficits noted. Advance Directives: Currently, there is no health care proxy. home support is adequate. Assessment: 11:48 General: Appears in no apparent distress, Behavior is cooperative. Pain: Location: left kr3 quadriceps Pain currently is 10 out of 10 on a pain scale. Musculoskeletal: pain left thigh. 12:34 General: Appears in no apparent distress, well nourished, well groomed, Behavior is ttb appropriate for age, cooperative, pleasant. Pain: Location: left femur only with movement. Neurological: Level of Consciousness is awake, alert, Oriented to person, place, time, Speech is normal, Facial symmetry appears normal. Cardiovascular: Chest pain is denied. Respiratory: No deficits noted. Airway is patent Respiratory effort is even, unlabored, Denies cough, shortness of breath. GI: Denies nausea, vomiting, pain. Derm: Skin is normal. Injury Description: pt fell from standing. 13:35 General: Appears in no apparent distress, Behavior is appropriate for age, resting rs3 comfortable. pain remains same. admitting provider with patient. Ordered ECG done. . 13:59 Reassessment: Patient appears in no apparent distress at this time. pt continues to be ttb comfortable with no movement. Pain with movement reported. NAD while laying on stretcher. PA in speaking with pt. Admission RN in with pt at this time as well. OR calling stating ready for pt. remains at bedside. Questions addressed.. Neurological: Level of Consciousness is awake, alert. Cardiovascular: Chest pain is denied. Respiratory: No deficits noted. Airway is patent Respiratory effort is even, unlabored, Denies cough, shortness of breath. GI: Denies nausea, vomiting. 13:59 General: pt taken to CT then to OR.. ttb Vital Signs: 11:14 BP 163 / 82; Pulse 78; Resp 18; Temp 97.0(T); Pulse Ox 95% on R/A; Weight 120.2 kg; [facility] Height 5 ft. 8 in. (172.72 cm); Pain 10/10; 13:56 BP 139 / 75; Pulse 75; Resp 18; Temp 98.0; Pulse Ox 98% on R/A; Pain 0/10; ttb 11:14 Body Mass Index 40.29 (120.20 kg, 172.72 cm) [facility] Vitals: 11:14 Log In Time N/A - ambulance arrival. [facility] ED Course: 11:13 Patient visited by Ever Kruse. dem1 11:13 Nicolette Frazier is Private Physician. [facility] 11:13 Patient moved to Waiting dem1 11:14 Patient moved to Pre RCE dem1 11:19 Triage Initiated dsf 11:25 Patient moved to Triage 2 dsf 11:28 Dannie Ash PA-C is PHCP. cc10 11:28 Ya Casiano MD is Attending Physician. cc10 11:30 Patient visited by Dannie Ash PA-C. cc10 11:30 Patient visited by Dannie Ash PA-C. cc10 11:48 Patient moved to TR1 dsf 11:49 The patient / caregiver is instructed regarding the plan of care and ED course. Patient kr3 has correct armband on for positive identification. 11:58 Patient moved to I / kr3 12:29 Kevan Mccurdy DO is Hospitalizing Provider. cc10 12:33 Type & Screen Sent. ttb 12:33 Pt & Aptt Sent. ttb 12:34 BMP Sent. ttb 12:34 CBC with Diff Sent. ttb 12:34 Inserted peripheral IV: 20gauge IV in right antecubital area and blood collected. ttb Patient tolerated the procedure well. Labs drawn. (by ED staff). 12:35 Patient visited by Nereida Vasquez RN. ttb 12:35 Femur Returned. EDMS 12:40 Patient visited by Paige Amos RN. dmr 13:04 [place] [place] was scanned into [employer] and attached to record. mm15 13:55 Admission Orders was scanned into [employer] and attached to record. jrd 13:58 No procedures done that require assistance. ttb 14:03 Chest, 2 View (pa\E\lat) Returned. EDMS 15:37 CT-Femur WITHOUT CONTRAST Returned. EDMS 18:11 Femur Returned. EDMS 05/02 08:05 T-Sheet-- Draft Copy was scanned into [employer] and attached to record. gb 13:05 ECG/EKG was scanned into [employer] and attached to record. gb Administered Medications: 05/01 11:48 Drug: HYDROcodone-acetaminophen 1 tabs [hydrocodone 5 mg-acetaminophen 325 mg tablet (1 kr3 tabs)] Route: PO; 12:30 Drug: NS 0.9% 1000 ml [sodium chloride 0.9 % intravenous solution] Route: IV; Rate: 250 ttb mL/hr; Site: right antecubital; 12:30 Drug: morphine 4 mg [morphine 4 mg/mL intravenous cartridge (1 mL)] Route: IVP; Site: ttb right antecubital; Order Results: Lab Order: CBC with Diff; SPEC'M 05/01/16 12:31 Test: WHITE BLOOD COUNT; Value: 11.5; Range: 4.0-10.0; Abnormal: Above high normal; Units: K/mm3; Status: F Test: RED BLOOD COUNT; Value: 4.87; Range: 4.30-6.10; Units: M/mm3; Status: F Test: HEMOGLOBIN; Value: 15.2; Range: 14.0-18.0; Units: g/dl; Status: F Test: HEMATOCRIT; Value: 44.2; Range: 42.0-52.0; Units: %; Status: F Test: MEAN CORPUSCULAR VOLUME; Value: 90.8; Range: 80.0-96.0; Units: fl; Status: F Test: MEAN CORPUSCULAR HEMOGLOBIN; Value: 31.2; Range: 27.0-33.0; Units: pg; Status: F Test: MEAN CORPUSCULAR HGB CONC; Value: 34.4; Range: 32.0-36.5; Units: g/dl; Status: F Test: RED CELL DISTRIBUTION WIDTH; Value: 12.6; Range: 11.5-14.5; Units: %; Status: F Test: PLATELET COUNT, AUTOMATED; Value: 247; Range: 150-450; Units: k/mm3; Status: F Test: NEUTROPHILS %; Value: 76.7; Range: 36.0-66.0; Abnormal: Above high normal; Units: %; Status: F Test: LYMPH %; Value: 12.4; Range: 24.0-44.0; Abnormal: Below low normal; Units: %; Status: F Test: MONO %; Value: 4.7; Range: 0.0-5.0; Units: %; Status: F Test: EOS %; Value: 3.9; Range: 0.0-3.0; Abnormal: Above high normal; Units: %; Status: F Test: BASO %; Value: 0.5; Range: 0.0-1.0; Units: %; Status: F Test: LARGE UNSTAINED CELL %; Value: 1.8; Range: 0.0-4.0; Units: %; Status: F Test: NEUTROPHILS #; Value: 8.8; Range: 1.8-7.7; Abnormal: Above high normal; Units: K/mm3; Status: F Test: LYMPH #; Value: 1.4; Range: 1.5-4.5; Abnormal: Below low normal; Units: K/mm3; Status: F Test: MONO #; Value: 0.5; Range: 0.0-0.8; Units: K/mm3; Status: F Test: EOS #; Value: 0.4; Range: 0.0-0.50; Units: K/mm3; Status: F Test: BASO #; Value: 0.1; Range: 0.0-0.2; Units: K/mm3; Status: F Test: LARGE UNSTAINED CELL #; Value: 0.2; Range: 0.0-0.4; Units: K/mm3; Status: F Lab Order: [facility]; SPEC'M 05/01/16 12:31 Test: GLUCOSE, FASTING; Value: 106; Range: 80-110; Units: MG/DL; Status: F Test: BLOOD UREA NITROGEN; Value: 16; Range: 7-18; Units: MG/DL; Status: F Test: CREATININE FOR GFR; Value: 1.16; Range: 0.70-1.30; Units: MG/DL; Status: F Test: GLOMERULAR FILTRATION RATE; Value: > 60.0; Range: >49; Status: F Test: SODIUM LEVEL; Value: 139; Range: 136-145; Units: MEQ/L; Status: F Test: POTASSIUM SERUM; Value: 4.5; Range: 3.5-5.1; Units: MEQ/L; Status: F Test: CHLORIDE LEVEL; Value: 104; Range: 98-107; Units: MEQ/L; Status: F Test: CARBON DIOXIDE LEVEL; Value: 25; Range: 21-32; Units: MEQ/L; Status: F Test: ANION GAP; Value: 10; Range: 8-16; Units: MEQ/L; Status: F Test: CALCIUM LEVEL; Value: 9.1; Range: 8.8-10.2; Units: MG/DL; Status: F Test Note: ; Units are mL/min/1.73 m2 Chronic Kidney Disease Staging per NKF: Stage I & II GFR >=60 Normal to Mildly Decreased Stage III GFR 30-59 Moderately Decreased Stage IV GFR 15-29 Severely Decreased Stage V GFR <15 Very Little GFR Left ESRD GFR <15 on FIRE PREVENTION CHIEF Lab Order: Pt & Aptt; SPEC'M 05/01/16 12:31 Test: PROTHROMBIN TIME; Value: 12.3; Range: 12.3-14.5; Units: SECONDS; Status: F Test: INR; Value: 0.90; Status: F Test: PARTIAL THROMBOPLASTIN TIME; Value: 25.1; Range: 26.6-37.1; Abnormal: Below low normal; Units: SECONDS; Status: F Test Note: ; THERAPUTIC HUMAN INR VALUES INDICATIONS NORMAL RANGES PROPHYLAXIS/TREATMENT OF: VENOUS THROMBOSIS 2.0-3.0 PULMONARY EMBOLISM 2.0-3.0 PREVENTION OF SYSTEMIC EMBOLISM FROM: TISSUE HEART VALVES 2.0-3.0 ACUTE MYOCARDIAL INFARCTION 2.0-3.0 VALVULAR HEART DISEASE 2.0-3.0 ATRIAL FIBRILLATION 2.0-3.0 MECHANICAL VALVES(HIGH RISK) 2.5-3.5 RECURRENT MYOCARDIAL INFARCTION 2.5-3.5 Lab Order: Type & Screen; SPEC'M 05/01/16 13:25 Test: BLOOD TYPE; Value: A POS; Status: F Test: AB SCREEN (INDIRECT VERO)GEL; Value: NEGATIVE; Status: F Lab Order: WOUND CULTURE AND GRAM ST; [facility]'M 05/01/16 15:38 Test: GRAM STAIN; Value: GRAM STAIN RESULT; Status: F Test: GRAM STAIN; Value: NO CELLS SEEN; Status: F Test: GRAM STAIN; Value: NO ORGANISMS SEEN; Status: F Lab Order: COMPLETE BLOOD COUNT; [facility]' 05/02/16 06:26 Test: WHITE BLOOD COUNT; Value: 11.1; Range: 4.0-10.0; Abnormal: Above high normal; Units: K/mm3; Status: F Test: RED BLOOD COUNT; Value: 4.36; Range: 4.30-6.10; Units: M/mm3; Status: F Test: HEMOGLOBIN; Value: 13.5; Range: 14.0-18.0; Abnormal: Below low normal; Units: g/dl; Status: F Test: HEMATOCRIT; Value: 41.1; Range: 42.0-52.0; Abnormal: Below low normal; Units: %; Status: F Test: MEAN CORPUSCULAR VOLUME; Value: 94.1; Range: 80.0-96.0; Units: fl; Status: F Test: MEAN CORPUSCULAR HEMOGLOBIN; Value: 30.9; Range: 27.0-33.0; Units: pg; Status: F Test: MEAN CORPUSCULAR HGB CONC; Value: 32.8; Range: 32.0-36.5; Units: g/dl; Status: F Test: RED CELL DISTRIBUTION WIDTH; Value: 13.6; Range: 11.5-14.5; Units: %; Status: F Test: PLATELET COUNT, AUTOMATED; Value: 233; Range: 150-450; Units: k/mm3; Status: F Lab Order: BASIC METABOLIC PROFILE; [facility] 05/02/16 06:26 Test: GLUCOSE, FASTING; Value: 115; Range: 80-110; Abnormal: Above high normal; Units: MG/DL; Status: F Test: BLOOD UREA NITROGEN; Value: 15; Range: 7-18; Units: MG/DL; Status: F Test: CREATININE FOR GFR; Value: 1.06; Range: 0.70-1.30; Units: MG/DL; Status: F Test: GLOMERULAR FILTRATION RATE; Value: > 60.0; Range: >49; Status: F Test: SODIUM LEVEL; Value: 139; Range: 136-145; Units: MEQ/L; Status: F Test: POTASSIUM SERUM; Value: 4.2; Range: 3.5-5.1; Units: MEQ/L; Status: F Test: CHLORIDE LEVEL; Value: 102; Range: 98-107; Units: MEQ/L; Status: F Test: CARBON DIOXIDE LEVEL; Value: 30; Range: 21-32; Units: MEQ/L; Status: F Test: ANION GAP; Value: 7; Range: 8-16; Abnormal: Below low normal; Units: MEQ/L; Status: F Test: CALCIUM LEVEL; Value: 8.7; Range: 8.8-10.2; Abnormal: Below low normal; Units: MG/DL; Status: F Test Note: ; Units are mL/min/1.73 m2 Chronic Kidney Disease Staging per NKF: Stage I & II GFR >=60 Normal to Mildly Decreased Stage III GFR 30-59 Moderately Decreased Stage IV GFR 15-29 Severely Decreased Stage V GFR <15 Very Little GFR Left ESRD GFR <15 on FIRE PREVENTION CHIEF Radiology Order: Femur Test: Femur REASON FOR EXAMINATION: Trauma; Four view left femur series 05/01/2016; ; Indication: Trauma; ; Findings: Displaced spiral fracture is noted within the mid to distal femoral; shaft with medial displacement by one shaft width and mild posterior displacement; and posterior angulation of distal fracture fragment. There is small amount of; foreshortening of fracture fragments as well.; ; The left hip is without acute fracture or dislocation; ; Multiple surgical clips are projected over the lower central pelvis in the area; of prostate.; ; Impression: Displaced mid to distal left femoral shaft spiral fracture, with; alignment as above.; ; ; Signed by; Elo Mares MD 05/01/2016 12:15 P; Radiology Order: Chest, 2 View (pa\E\lat) Test: Chest, 2 View (pa\E\lat) REASON FOR EXAMINATION: pre-op; TWO VIEW CHEST:; ; Two views of the chest are performed. The left costophrenic angle is not; visualized. The AP film is taken in a somewhat apical lordotic projection. No; acute infiltrate is seen. There is elevation of the right hemidiaphragm,; unchanged. The mediastinal silhouette is unchanged. The heart appears; magnified. There are mild degenerative changes of the spine.; ; IMPRESSION:; ; Somewhat limited exam but no definite acute pulmonary disease.; ; ; Signed by; Mikey Hammond MD 05/01/2016 03:22 P; Radiology Order: Femur Test: Femur REASON FOR EXAMINATION: LT FEMUR FX; C-arm views of the mid to distal left femur 05/01/2016; ; Indication left femur fracture; ; Comparison: CT left femur 05/01/2016 as well as left femur radiographs; 05/01/2016; ; 42 seconds of c-arm fluoroscopy time were provided to of Department of; Othopedic Surgery who performed ORIF of the mid to distal left femur for spiral; fracture. There is a lateral mid to distal femoral side plate with multiple; transverse interlocking screws. The alignment is anatomic in the; visualized/included portions of the left mid to distal femur.; ; Seven images were recorded and are available for review on PACS.; ; Impression: Status post ORIF of the left femur for displaced mid to distal; spiral fracture. The included portions of the left femur are in anatomic; alignment post ORIF; ; ; ; ; Signed by; Elo Mares MD 05/01/2016 05:40 P; Radiology Order: CT-Femur WITHOUT CONTRAST Test: CT-Femur WITHOUT CONTRAST REASON FOR EXAMINATION: FALL INJURY; CT of the left femur 05/01/2016; ; Indication: Fall, injury; ; Comparison: Radiographs of the left femur performed earlier today; ; Technique: 3 mm continuous spiral axial sections were through the left lower; pelvis and left femur without contrast. Sagittal and coronal reconstructed; images were subsequently created provided for interpretation; ; Findings: The left hip is without acute fracture dislocation. Included portions; of the left winnie pelvis are intact.; ; There is a spiral displaced fracture of the distal third femoral shaft with; medial displacement of distal fracture fragment by one shaft with and with less; posterior displacement and posterior angulation distal fracture fragment.; ; The visualized portions of the left hip, acetabulum, superior pubic rami appear; intact and the visualized portion; ; Impression; 1. Displaced spiral fracture of the distal third left femur; alignment is mildly; improved, yet further reduction is needed; ; ; Signed by; Elo Mares MD 05/01/2016 02:56 P; Outcome: 12:29 Decision to Hospitalize by Provider. cc10 13:56 Discharge Assessment: Patient awake, alert and oriented x 3. No cognitive and/or ttb functional deficits noted. Patient verbalized understanding of disposition instructions. Patient awake and alert. patient administered narcotics - yes. Patient was admitted to the hospital or transferred to another facility. The following High Risk Discharge criteria are identified: Yes, admit to OR. Admitted to OR accompanied by nurse, family with patient, via stretcher, with chart. Condition: stable. Instructed on Admission process / OR admission process. Property given to family member, has clothing, watch, gold ring. 13:59 CT Study completed. ttb 14:03 Patient left the ED. ttb Signatures: Dispatcher [employer] EDMS Priscilla Fernandez, Reg Reg gb Paige Amos,RN RN dmr Ryann Pope RN RN kr3 Kaylee Hoover RN RN rs3 Bushra MastersonRN RN dsEver Soliz dem1 Nereida Vasquez RN RN ttb Damaris Gutierrez mm15 Dannie Ash, PA-C PA-C cc10 Juan Valdez, DOMING[employer]IC[employer] jrd Corrections: (The following items were deleted from the chart) 13:59 13:56 No special radiology studies were completed ttb ttb Chart Complete MTDD
[2016-05-03] MEDS ORDERED: WARFARIN SOD 7.5 MG TAB PO ONE (17:00)
[2016-05-03] MEDS: SIMVASTATIN 20 MG TAB PO SCH (20:23)
[2016-05-03 22:00] VITALS: BP 146/69
[2016-05-04 06:00] VITALS: BP 149/72
[2016-05-04 06:43] LABS: ANION GAP 8 MEQ/L (8-16); BLOOD UREA NITROGEN 14 MG/DL (7-18); CARBON DIOXIDE LEVEL 28 MEQ/L (21-32); CHLORIDE LEVEL 107 MEQ/L (98-107); CREATININE FOR GFR 0.96 MG/DL (0.70-1.30); GLOMERULAR FILTRATION RATE > 60.0 (>49); GLUCOSE, FASTING 108 MG/DL (80-110); MEAN CORPUSCULAR HEMOGLOBIN 31.5 pg (27.0-33.0); MEAN CORPUSCULAR HGB CONC 32.8 g/dl (32.0-36.5); MEAN CORPUSCULAR VOLUME 95.9 fl (80.0-96.0); POTASSIUM SERUM 4.5 MEQ/L (3.5-5.1); RED CELL DISTRIBUTION WIDTH 13.6 % (11.5-14.5); SODIUM LEVEL 143 MEQ/L (136-145); WHITE BLOOD COUNT 10.7 K/mm3 (4.0-10.0)
[2016-05-04 06:59] LABS: INR 0.95
[2016-05-04] MEDS ORDERED: PERC5TAB6 PO (08:13)
[2016-05-04] MEDS ORDERED: COUM2.5T11 PO (08:13)
[2016-05-04] MEDS: MIRALAX *UNIT DOSE* 17GM PACKET PO SCH (08:44)
[2016-05-04] MEDS: PERCOCET 5MG/325MG TAB PO PRN ×3 (08:45→22:04)
[2016-05-04] MEDS: VALSARTAN 80 MG TAB (DIOVAN) PO SCH (08:45)
[2016-05-04] MEDS: ASPIRIN 81 MG CHEW TABLET PO SCH (08:46)
[2016-05-04] MEDS: MULTIVITAMINS/MINERALS THERAP 1 TAB PO SCH (08:46)
[2016-05-04] MEDS: DOCUSATE SODIUM 100 MG CAP PO SCH ×2 (08:46→20:09)
[2016-05-04] MEDS ORDERED: ENOXAPARIN 40 MG/0.4 ML SYRINGE (J1650) SC SCH (09:00)
[2016-05-04] MEDS: SANTYL OINT 30GM TOP SCH (10:02)
[2016-05-04] MEDS ORDERED: BACT800T5 PO (12:50)
[2016-05-04 14:00] VITALS: BP 139/70
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
[2016-05-04] MEDS ORDERED: FLEET ENEMA PR PRN (17:45)
[2016-05-04] MEDS: SIMVASTATIN 20 MG TAB PO SCH (20:09)
[2016-05-04 22:00] VITALS: BP 135/73
[2016-05-05 06:00] VITALS: BP 141/69
[2016-05-05 06:50] LABS: MEAN CORPUSCULAR HEMOGLOBIN 31.1 pg (27.0-33.0); MEAN CORPUSCULAR HGB CONC 33.2 g/dl (32.0-36.5); MEAN CORPUSCULAR VOLUME 93.5 fl (80.0-96.0); RED CELL DISTRIBUTION WIDTH 12.8 % (11.5-14.5); WHITE BLOOD COUNT 6.9 K/mm3 (4.0-10.0)
[2016-05-05 06:56] LABS: INR 1.13
[2016-05-05 07:14] LABS: ANION GAP 8 MEQ/L (8-16); BLOOD UREA NITROGEN 16 MG/DL (7-18); CARBON DIOXIDE LEVEL 30 MEQ/L (21-32); CHLORIDE LEVEL 107 MEQ/L (98-107); CREATININE FOR GFR 0.91 MG/DL (0.70-1.30); GLOMERULAR FILTRATION RATE > 60.0 (>49); GLUCOSE, FASTING 105 MG/DL (80-110); POTASSIUM SERUM 4.5 MEQ/L (3.5-5.1); SODIUM LEVEL 145 MEQ/L (136-145)
[2016-05-05] MEDS ORDERED: MAGNESIUM CITRATE 300 ML BTL PO ONE (07:15)
[2016-05-05] MEDS: PERCOCET 5MG/325MG TAB PO PRN ×3 (07:37→22:37)
[2016-05-05] MEDS: MULTIVITAMINS/MINERALS THERAP 1 TAB PO SCH (08:17)
[2016-05-05] MEDS: DOCUSATE SODIUM 100 MG CAP PO SCH ×2 (08:17→22:37)
[2016-05-05] MEDS: MIRALAX *UNIT DOSE* 17GM PACKET PO SCH (08:18)
[2016-05-05] MEDS: VALSARTAN 80 MG TAB (DIOVAN) PO SCH (08:18)
[2016-05-05] MEDS: SANTYL OINT 30GM TOP SCH (08:19)
[2016-05-05] MEDS ORDERED: MAGNESIUM CITRATE 300 ML BTL PO PRN (09:00)
[2016-05-05] MEDS ORDERED: ENOXAPARIN 40 MG/0.4 ML SYRINGE (J1650) SC SCH ×2 (09:00→15:00)
[2016-05-05] MEDS ORDERED: ISOVUE-300 61% 50ML VIAL (Q9967) As Ordered ONE (15:55)
[2016-05-05] MEDS ORDERED: WARFARIN SOD 10 MG TAB PO ONE (17:00)
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
[2016-05-05] MEDS ORDERED: HEPARIN SOD (PORCINE) 5000 UNITS/ML VIAL SQ ONE (18:30)
[2016-05-05 22:00] VITALS: BP 159/74
[2016-05-05] MEDS: SIMVASTATIN 20 MG TAB PO SCH (22:36)
[2016-05-06] MEDS: PERCOCET 5MG/325MG TAB PO PRN ×3 (05:45→22:09)
[2016-05-06 06:00] VITALS: BP 168/78
[2016-05-06 06:52] LABS: MEAN CORPUSCULAR HEMOGLOBIN 31.2 pg (27.0-33.0); MEAN CORPUSCULAR HGB CONC 34.1 g/dl (32.0-36.5); MEAN CORPUSCULAR VOLUME 91.5 fl (80.0-96.0); RED CELL DISTRIBUTION WIDTH 13.7 % (11.5-14.5); WHITE BLOOD COUNT 8.3 K/mm3 (4.0-10.0)
[2016-05-06 06:57] LABS: INR 1.11
[2016-05-06 07:19] LABS: ANION GAP 8 MEQ/L (8-16); BLOOD UREA NITROGEN 17 MG/DL (7-18); CALCIUM LEVEL 8.7 MG/DL (8.8-10.2); CARBON DIOXIDE LEVEL 30 MEQ/L (21-32); CHLORIDE LEVEL 104 MEQ/L (98-107); CREATININE FOR GFR 0.99 MG/DL (0.70-1.30); GLOMERULAR FILTRATION RATE > 60.0 (>49); GLUCOSE, FASTING 101 MG/DL (80-110); POTASSIUM SERUM 4.4 MEQ/L (3.5-5.1); SODIUM LEVEL 142 MEQ/L (136-145)
--- NOTE | 2016-05-06 09:03 | PHACANCOPD ---
PHARMACY VANCOMYCIN DOSING Pt Demographics Demographics Patient Age:60 , Weight:123.500 , Gender: male Adjusted Body Weight Date: 05/06/16, Adjusted Body Weight: [90.44] Kg Events Past 24 Hours Events Past 24 Hours: NO: Change in CrCl, Dialysis, Diuretic Therapy, Elevation in WBC, Fever, Other, Pending Diagnostics, Pending Procedures Vancomycin Vancomycin indication: CELLULITIS/TINY ABSCESS Vancomycin Target Ranges: 15-20 mcg/ml Vancomycin Load Y/N: Yes Load Dose Date Time Vancomycin Load Dose: 2G Date: 05/06/2016 Time: 0900 Vancomycin Dose Date: 05/06/16. Current Vancomycin Dose: [1G Q12H @1999] Intermittent Dosing?: No Labs Labs Item Value Date Time White Blood Count 10.7 K/mm3 H 05/04/16 0613 White Blood Count 6.9 K/mm3 05/05/16 0614 White Blood Count 8.3 K/mm3 05/06/16 0612 Creatinine 0.96 MG/DL 05/04/16 0613 Creatinine 0.91 MG/DL 05/05/16 0614 Creatinine 0.99 MG/DL 05/06/16 0612 Vital Signs Label Value Date Time Patient Temperature 97.8 degrees F 05/05/16 2200 Temperature Source Tympanic 05/05/16 2200 Patient Temperature 97.0 degrees F 05/06/16 0600 Temperature Source Tympanic 05/06/16 0600 Micro Microbiology 05/01/16 Gram Stain - Final, Resulted 05/01/16 Wound Culture - Final, Resulted Staph.aureus Methicillin Resis Enterococcus Faecalis 05/01/16 Anaerobic Culture, Resulted Pending Creatinine Clearance Date:05/06/16. Creatinine Clearance: [75.8ML/MIN]. Assessment and Plan Maintaining Current Dose?: Yes Reason for dose change: No Dose Change Pharmacist Note Pharmacist Note Date: 05/06/16. Pharmacist note: Pt is being treated for cellulitis/tiny abscess with MRSA present at the wound site with a goal trough value of 15-20mcg/ml. Pts. WBC was elevated but has returned to normal range. To obtain goal therapy a 2g loading dose was started 05/06 at 9am and maintenance dosing will start at 8pm at 1g 12 hours. a Trough was schedule 05/07 at 1900 to access therapy. We will continue to monitor and adjust dosing as needed. SARBJIT MCCARTHY [facility] May 06, 2016 09:03
[2016-05-06] MEDS: MIRALAX *UNIT DOSE* 17GM PACKET PO SCH (09:52)
[2016-05-06] MEDS: MULTIVITAMINS/MINERALS THERAP 1 TAB PO SCH (09:53)
[2016-05-06] MEDS: DOCUSATE SODIUM 100 MG CAP PO SCH ×2 (09:53→20:18)
[2016-05-06] MEDS: VALSARTAN 80 MG TAB (DIOVAN) PO SCH (09:53)
[2016-05-06] MEDS: SANTYL OINT 30GM TOP SCH (09:54)
[2016-05-06] MEDS: VANCOMYCIN HCL 1,000 MG, VIAL MATE ADAPTER 1 EACH in D5W 250 ML IV SCH ×3 (12:25→20:18)
[2016-05-06 14:00] VITALS: BP 147/65
--- NOTE | 2016-05-06 16:53 | IPNPDOC ---
Text Note Date of Service The patient was seen on 05/06/16 at 16:44. NOTE Subjective: Pt states he feels well. Denies any complaints. Objective: Vitals: (see below) General: No acute distress, laying comfortably in bed. HEENT: Moist mucous membranes. Neck: No JVD or lymphadenopathy Cardiac: RRR, No murmurs Pulm: Clear to auscultation b/l. No wheezing, rhonchi Abd: NT/ND + BS Ext: Left BKA with stump bandaged. Mild tenderness and minimal swelling at the femur repair site. No erythema noted. No bleeding. Labs (see below) Images: MRI LLE 05/02/16 IMPRESSION:Central fluid filled sinus tract in the remaining portion of the tibia, likely the sequela of chronic osteomyelitis. I do not see MR evidence of acute osteomyelitis at this time. Soft tissue edema with some possible subtle areas of enhancement and cellulitis. Small pocket of fluid is seen in the distal soft-tissue of the remaining left lower leg stump measuring about 9 mm in diameter. This could possibly represent a tiny abscess. CTA LE 05/02/16 Impression:1. Diffusely attenuated left common femoral and left superficial femoral artery with occlusion above the origin of the left popliteal artery. The patient had prior left ontsr-ras-tohs amputation. The patient has recent ORIF of the left femur for displaced spiral fracture. 2. Two vessel runoff to the right mid calf level with diffusely attenuated posterior tibial artery . One vessel runoff at right ankle ( posterior tibial artery) LLE Xray 05/02/16IMPRESSION:The patient is status post ORIF of a comminuted fracture of the distal femur. There is anatomic alignment. Assessment/Plan 1. Chronic osteomyelitis with cellulitis areas as well as a possible tiny abscess in the left lower extremity adjacent to the stump. Patient has been started on vancomycin today. Dr. Lima consulted, and we'll be following patient patient's as well as following Vanco levels. There was difficulty placing a PICC line as the patient likely has significant peripheral artery disease based on his lower extremity CTA. Intervention would allergy was consulted and will be performing a headache catheter the patient may continue prolonged antibiotics. Case management is also working on assisting the patient in obtaining vancomycin outpatient. Wound culture with MRSA. Trend CRP and WBC. Pt will also be following up with Dr. Dsozua outpatient. 2. Left femur fracture status post mechanical fall. Status post ORIF per orthopedics. Pain management and DVT prophylaxis per orthopedics. Orthopedics for discharge. 3. Normocytic anemia- hemoglobin stable. No active bleeding. Continue to monitor. 4. SARAH on CPAP 5. Hypertension- controlled continue home meds 6. Hyperlipidemia- controlled, continue home meds 7. Tobacco abuse- nicotine patch. Smoking cessation. Plan to discharge in the next 24 hours Juarez catheter is able to be placed by interventional radiology, and case management is able to assist patient in obtaining outpatient vancomycin. VS,Fishbone, I+O VS, Fishbone, I+O Laboratory Tests 05/06/16 06:12 Calcium Level 8.7 L, Red Blood Count 4.01 L, Mean Corpuscular Volume 91.5, Mean Corpuscular Hemoglobin 31.2, Mean Corpuscular Hemoglobin Concent 34.1, Red Cell Distribution Width 13.7 Vital Signs Date Time Temp Pulse Resp B/P Pulse Ox O2 Delivery O2 Flow Rate FiO2 05/06/16 14:00 98.5 85 18 147/65 94 Room Air 05/02/16 06:17 2.0 I&O- Last 24 Hours up to 6 AM 05/06/16 05:59 Intake Total 1800 ml Output Total 300 ml Balance 1500 ml VIKRAM MOCTEZUMA MD May 06, 2016 16:52
[2016-05-06] MEDS ORDERED: WARFARIN SOD 10 MG TAB PO ONE (17:00)
--- NOTE | 2016-05-06 17:02 | REP ---
PICC LINE INSERTION WITH SITE-RITE: The procedure was performed under the direct supervision of Dr. Jeronimo. The risks and benefits of the procedure were explained to the patient and informed consent was obtained. The right brachial vein was localized using ultrasound guidance. The skin was prepped and draped in a sterile fashion. 2% lidocaine was used as a local anesthetic. Using ultrasound guidance, the brachial vein was cannulated and a 0.018 guidewire was inserted and advanced to the level of the distal right subclavian vein and could not be advanced any further. A venogram was performed and images demonstrate collateral veins likely representing a central venous occlusion. The left basilic vein was then localized using ultrasound guidance. The skin was prepped and draped in a sterile fashion. 2% lidocaine was used as a local anesthetic. Using ultrasound guidance, the basilic vein was cannulated and a 0.018 guidewire was inserted and advanced to the SVC using fluoroscopic guidance. The needle was removed and a 4.5-Maldivian dilator and peel-away sheath was inserted over the guidewire. A 4.5-Maldivian single lumen catheter was cut to a length of 48 cm. The dilator was removed and the catheter was inserted, however, it could not be advanced beyond the level of the left axillary region. A venogram was performed and images demonstrate possible spasm of the vein. Multiple attempts were made, however, the catheter could not be advanced beyond this point. The procedure was then discontinued. A total of 20 mL of Isovue-300 was utilized for the venogram. These findings were relayed to the ordering physician at the time of the procedure. 5 minutes and 37 seconds of fluoroscopy time was utilized for this procedure. Reviewed by MARYANA Melgar 05/07/2016 08:32 AEdited and Signed by Juan Jeronimo MD 05/07/2016 02:56 P
[2016-05-06] MEDS ORDERED: LIDOCAINE 1% MDV 20ML VIAL As Ordered ONE (17:48)
[2016-05-06] MEDS ORDERED: SODIUM BICARBONATE 8.4% INJ 50MEQ 50 ML VIAL As Ordered ONE (17:48)
[2016-05-06] MEDS ORDERED: LIDOCAINE W/EPINEPHRINE 1% 20ML VIAL As Ordered ONE (17:48)
[2016-05-06] MEDS ORDERED: ISOVUE-300 61% 50ML VIAL (Q9967) As Ordered ONE (18:05)
[2016-05-06] MEDS ORDERED: SODIUM CHLORIDE 0.9% INJ 10 ML SYR IV PRN (20:15)
[2016-05-06] MEDS: SIMVASTATIN 20 MG TAB PO SCH (20:18)
[2016-05-06] MEDS ORDERED: ENOXAPARIN 40 MG/0.4 ML SYRINGE (J1650) SC SCH (21:00)
[2016-05-06 22:00] VITALS: BP 157/78
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
[2016-05-07] MEDS: PERCOCET 5MG/325MG TAB PO PRN ×2 (04:38→09:14)
[2016-05-07 06:00] VITALS: BP 174/87
[2016-05-07 06:45] LABS: MEAN CORPUSCULAR HEMOGLOBIN 31.3 pg (27.0-33.0); MEAN CORPUSCULAR HGB CONC 33.9 g/dl (32.0-36.5); MEAN CORPUSCULAR VOLUME 92.2 fl (80.0-96.0); RED CELL DISTRIBUTION WIDTH 12.7 % (11.5-14.5); WHITE BLOOD COUNT 6.6 K/mm3 (4.0-10.0)
[2016-05-07 06:49] LABS: INR 1.07
[2016-05-07 06:54] LABS: ANION GAP 8 MEQ/L (8-16); BLOOD UREA NITROGEN 15 MG/DL (7-18); CALCIUM LEVEL 8.4 MG/DL (8.8-10.2); CARBON DIOXIDE LEVEL 29 MEQ/L (21-32); CHLORIDE LEVEL 104 MEQ/L (98-107); CREATININE FOR GFR 0.89 MG/DL (0.70-1.30); GLOMERULAR FILTRATION RATE > 60.0 (>49); GLUCOSE, FASTING 95 MG/DL (80-110); POTASSIUM SERUM 4.3 MEQ/L (3.5-5.1); SODIUM LEVEL 141 MEQ/L (136-145)
[2016-05-07] MEDS: VALSARTAN 80 MG TAB (DIOVAN) PO SCH (08:16)
[2016-05-07] MEDS: DOCUSATE SODIUM 100 MG CAP PO SCH (08:16)
[2016-05-07] MEDS: MULTIVITAMINS/MINERALS THERAP 1 TAB PO SCH (08:17)
[2016-05-07] MEDS: VANCOMYCIN HCL 1,000 MG, VIAL MATE ADAPTER 1 EACH in D5W 250 ML IV SCH (08:17)
[2016-05-07] MEDS: MIRALAX *UNIT DOSE* 17GM PACKET PO SCH (08:18)
[2016-05-07] MEDS: SANTYL OINT 30GM TOP SCH (08:18)
[2016-05-07] MEDS ORDERED: AMLO5TAB2 PO (08:47)
[2016-05-07] MEDS ORDERED: amLODIPine 5 MG TAB PO SCH (09:00)
[2016-05-07 09:13] VITALS: BP 174/87
--- NOTE | 2016-05-07 16:06 | REPKIM ---
CLINICAL HISTORY: Failed bilateral PICC associated with what appears to be subclavian vein stenosis and venous collaterals seen in the upper arm. Patient presents for a central venous access for long-term antibiotics/meds. PROCEDURE PERFORMED: Juarez Catheter Placement INTERVENTIONALIST: Adina Garcia MD CONSENT: The risks, benefits and alternatives to the procedure were explained to the patient and informed written consent was obtained. MEDICATIONS: Local Lidocaine 2% EBL: 5 mL FLUORO TIME: 0.4 minutes DEVICE USED: 9.5F Bard Power Juarez Catheter Lot#[id number] PROCEDURE/FINDINGS: The patient was brought to the interventional radiology suite and was positioned supine on the table. Time out procedure was performed. The right neck and upper chest were prepped and draped in the usual sterile fashion. Real time ultrasound was used and permanent image stored. Using ultrasound guidance the internal jugular vein was punctured with a micropunture needle, after infiltration of the skin and deep tissues with local anesthetic. A 9.5-Yoruba dual lumen Juarez catheter was inserted. The catheter was placed through a subcutaneous tunnel requiring a second incision. The incision at the base of the neck was closed with 4-0 Vicryl suture. The catheter was secured at the skin exit site with 2-0 Prolene suture. The ports of the catheter were locked with heparin (concentration 10 units/cc). A sterile dressing was then applied. Post procedure chest fluoroscopy showed the tip of the catheter at the cavoatrial junction. The patient tolerated the procedure well with no immediate complications. This procedure was performed using ultrasound and fluoroscopy. Dr. Garcia was present. IMPRESSION: 1. Ultrasound of the right neck demonstrates patent IJ vein and compressible. 2. Successful right IJ Juarez catheter placement as discussed above. There is free aspiration of blood from all ports of the catheter. The catheter is ready for immediate use. Continue antibiotics as directed. cc: Michael Quispe MD UNITED HEALTH SERVICESCullen
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
== END 2016-05-07 12:05 | disposition home or self-care (01) | DRG 308 ==
LOC: M ED 11:10 → EEVIPCON 12:50 → M ED INP 12:50 → M MS5PR 18:15 → M ED INP 05-02 12:07 → M MS5PR 05-02 12:11
PROVIDERS: ADMIT Hospitalist; ATTEND Internal Medicine
PROC: 0QSC04Z Reposition Left Lower Femur with Internal Fixation Device, Open Approach (ICD-10-PCS; principal; 2016-05-01 14:00)
PROC: 05HM33Z Insertion of Infusion Device into Right Internal Jugular Vein, Percutaneous Approach (ICD-10-PCS; 2016-05-06)
DX: S72.342A Displaced spiral fracture of shaft of left femur, initial encounter for closed fracture (principal); T87.44 Infection of amputation stump, left lower extremity; M86.462 Chronic osteomyelitis with draining sinus, left tibia and fibula; E66.01 Morbid (severe) obesity due to excess calories; I10 Essential (primary) hypertension; G47.33 Obstructive sleep apnea (adult) (pediatric); E78.5 Hyperlipidemia, unspecified; I73.9 Peripheral vascular disease, unspecified; H26.9 Unspecified cataract; D64.9 Anemia, unspecified; L02.412 Cutaneous abscess of left axilla; B95.62 Methicillin resistant Staphylococcus aureus infection as the cause of diseases classified elsewhere; I77.1 Stricture of artery; D72.829 Elevated white blood cell count, unspecified; F17.210 Nicotine dependence, cigarettes, uncomplicated; Z89.512 Acquired absence of left leg below knee; W00.0XXA Fall on same level due to ice and snow, initial encounter; Y92.59 Other trade areas as the place of occurrence of the external cause; Y93.01 Activity, walking, marching and hiking; Y99.9 Unspecified external cause status; Z79.82 Long term (current) use of aspirin; Z79.01 Long term (current) use of anticoagulants; Z79.899 Other long term (current) drug therapy; Z99.89 Dependence on other enabling machines and devices

== ENCOUNTER → 2016-05-08 | Outpatient (REF) | payer OTHER, MEDICARE ==
[~2016-05-08] MED LIST changes: +AMLO5TAB2 PO; +BACT800T5 PO; +COUM2.5T11 PO; +GABA300C3 PO; -NICOTINE 14 MG/24 HR TRANSDERMAL TD SCH; +NORC5TAB PO; +PERC5TAB6 PO; +PROA1AER INH; +VITMTA PO
== END ==
LOC: M LAB REF 13:33
PROVIDERS: ATTEND Internal Medicine
DX: M86.60 Other chronic osteomyelitis, unspecified site (principal)

== ENCOUNTER → 2016-05-12 | Outpatient (REF) | payer OTHER, MEDICARE ==
[2016-05-12 14:17] LABS: INR 1.46
[2016-05-12 14:19] LABS: MEAN CORPUSCULAR HEMOGLOBIN 30.9 pg (27.0-33.0); MEAN CORPUSCULAR VOLUME 90.9 fl (80.0-96.0); RED CELL DISTRIBUTION WIDTH 13.5 % (11.5-14.5); WHITE BLOOD COUNT 7.5 K/mm3 (4.0-10.0)
[2016-05-12 14:38] LABS: ANION GAP 7 MEQ/L (8-16); BLOOD UREA NITROGEN 15 MG/DL (7-18); CALCIUM LEVEL 8.7 MG/DL (8.8-10.2); CARBON DIOXIDE LEVEL 29 MEQ/L (21-32); CHLORIDE LEVEL 106 MEQ/L (98-107); CREATININE FOR GFR 0.81 MG/DL (0.70-1.30); GLOMERULAR FILTRATION RATE > 60.0 (>49); GLUCOSE, FASTING 98 MG/DL (80-110); POTASSIUM SERUM 4.4 MEQ/L (3.5-5.1); SODIUM LEVEL 142 MEQ/L (136-145)
== END ==
LOC: M LAB REF 13:08
PROVIDERS: ATTEND Nurse Practitioner Family
DX: Z79.01 Long term (current) use of anticoagulants (principal); M86.60 Other chronic osteomyelitis, unspecified site

== ENCOUNTER → 2016-05-15 | Outpatient (REF) | payer OTHER, MEDICARE ==
[2016-05-15 14:01] LABS: INR 1.48
== END ==
LOC: M LAB REF 13:32
PROVIDERS: ATTEND Nurse Practitioner Family
DX: Z79.01 Long term (current) use of anticoagulants (principal); M86.60 Other chronic osteomyelitis, unspecified site

== ENCOUNTER → 2016-05-19 | Outpatient (REF) | payer OTHER, MEDICARE ==
[2016-05-19 13:59] LABS: MEAN CORPUSCULAR HEMOGLOBIN 30.6 pg (27.0-33.0); MEAN CORPUSCULAR VOLUME 90.2 fl (80.0-96.0); RED CELL DISTRIBUTION WIDTH 12.7 % (11.5-14.5); WHITE BLOOD COUNT 6.6 K/mm3 (4.0-10.0)
[2016-05-19 14:37] LABS: ANION GAP 9 MEQ/L (8-16); BLOOD UREA NITROGEN 16 MG/DL (7-18); CALCIUM LEVEL 8.9 MG/DL (8.8-10.2); CARBON DIOXIDE LEVEL 28 MEQ/L (21-32); CHLORIDE LEVEL 102 MEQ/L (98-107); GLOMERULAR FILTRATION RATE > 60.0 (>49); GLUCOSE, FASTING 102 MG/DL (80-110); POTASSIUM SERUM 4.4 MEQ/L (3.5-5.1); SODIUM LEVEL 139 MEQ/L (136-145)
== END ==
LOC: M LAB REF 13:44
PROVIDERS: ATTEND Internal Medicine
DX: M86.60 Other chronic osteomyelitis, unspecified site (principal); Z79.01 Long term (current) use of anticoagulants

== ENCOUNTER → 2016-05-19 | Outpatient (REF) | payer OTHER, MEDICARE ==
[2016-05-19 14:04] LABS: INR 1.18
== END ==
LOC: M LAB REF 13:42
PROVIDERS: ATTEND Nurse Practitioner Family
DX: Z79.01 Long term (current) use of anticoagulants (principal)

== ENCOUNTER → 2016-05-22 | Outpatient (REF) | payer OTHER, MEDICARE ==
[2016-05-22 20:37] LABS: INR 1.61
== END ==
LOC: M LAB REF 19:59
PROVIDERS: ATTEND Nurse Practitioner Family
DX: M86.652 Other chronic osteomyelitis, left thigh (principal); Z79.01 Long term (current) use of anticoagulants

== ENCOUNTER → 2016-05-26 | Outpatient (REF) | payer OTHER, MEDICARE ==
[2016-05-26 15:14] LABS: INR 1.97
== END ==
LOC: M LAB REF 14:37
PROVIDERS: ATTEND Nurse Practitioner Family

== ENCOUNTER → 2016-05-26 | Outpatient (REF) | payer OTHER, MEDICARE ==
[2016-05-26 15:40] LABS: ANION GAP 9 MEQ/L (8-16); BLOOD UREA NITROGEN 16 MG/DL (7-18); CALCIUM LEVEL 8.8 MG/DL (8.8-10.2); CARBON DIOXIDE LEVEL 28 MEQ/L (21-32); CHLORIDE LEVEL 102 MEQ/L (98-107); CREATININE FOR GFR 0.94 MG/DL (0.70-1.30); GLOMERULAR FILTRATION RATE > 60.0 (>49); GLUCOSE, FASTING 95 MG/DL (80-110); POTASSIUM SERUM 4.8 MEQ/L (3.5-5.1); SODIUM LEVEL 139 MEQ/L (136-145)
[2016-05-26 15:46] LABS: MEAN CORPUSCULAR HGB CONC 34.7 g/dl (32.0-36.5); MEAN CORPUSCULAR VOLUME 89.3 fl (80.0-96.0); RED CELL DISTRIBUTION WIDTH 13.7 % (11.5-14.5); WHITE BLOOD COUNT 7.5 K/mm3 (4.0-10.0)
== END ==
LOC: M LAB REF 14:36
PROVIDERS: ATTEND Internal Medicine
DX: Z79.01 Long term (current) use of anticoagulants (principal); M86.60 Other chronic osteomyelitis, unspecified site

== ENCOUNTER → 2016-05-28 | Outpatient (REF) | payer MEDICARE | LOC: M SFHCPLAZ 17:19 | PROVIDERS: ATTEND Dermatology | DX: C44.311 Basal cell carcinoma of skin of nose (principal) ==

== ENCOUNTER → 2016-06-04 | Outpatient (CLI) | payer MEDICARE ==
[~2016-06-04] MED LIST changes: +LIDOCAINE 2% MDV 20 ML VIAL As Ordered ONE; +SODIUM BICARBONATE 8.4% INJ 50MEQ 50 ML VIAL As Ordered ONE
--- NOTE | 2016-06-04 17:13 | REPKIM ---
CLINICAL HISTORY: Patient has a right IJ Juarez catheter. The referring service has asked to remove the catheter because it is no longer needed. PROCEDURE PERFORMED: Tunneled Right IJ Juarez Catheter Removal INTERVENTIONALIST: Dr. Adina Garcia MEDICATION: Local Lidocaine 2% EBL: 2 mL PROCEDURE/FINDINGS: Appropriate informed written consent was obtained. The area was prepped and draped in a usual sterile fashion. Local anesthesia was administered subcutaneously to the catheter exit site using 2% Lidocaine. The catheter cuff was bluntly dissected free from the surrounding soft tissues. The catheter was removed, inspected and confirmed to be removed in its entirety. Hemostasis was achieved by manual compression. A sterile dressing was applied. The patient tolerated the procedure well with no immediate complications. No imaging was used. Dr. Garcia was present. IMPRESSION: Tunneled right IJ Juarez catheter removal as discussed above. cc: MD Gladis Hyde MD MTDD
== END | disposition home or self-care (01) ==
LOC: M IRPRO 13:54
PROVIDERS: ATTEND Internal Medicine Infectious Disease
DX: Z45.2 Encounter for adjustment and management of vascular access device (principal)

== ENCOUNTER → 2016-06-09 | Outpatient (REF) | payer MEDICARE ==
[~2016-06-09] MED LIST changes: -LIDOCAINE 2% MDV 20 ML VIAL As Ordered ONE; -SODIUM BICARBONATE 8.4% INJ 50MEQ 50 ML VIAL As Ordered ONE
[2016-06-09 13:02] LABS: BASO % 0.7 % (0.0-1.0); EOS # 0.6 K/mm3 (0.0-0.50); LARGE UNSTAINED CELL # 0.2 K/mm3 (0.0-0.4); LARGE UNSTAINED CELL % 2.6 % (0.0-4.0); LYMPH # 2.2 K/mm3 (1.5-4.5); LYMPH % 31.2 % (24.0-44.0); MEAN CORPUSCULAR HEMOGLOBIN 30.5 pg (27.0-33.0); MEAN CORPUSCULAR VOLUME 92.6 fl (80.0-96.0); MONO # 0.5 K/mm3 (0.0-0.8); MONO % 8.1 % (0.0-5.0); NEUTROPHILS # 3.1 K/mm3 (1.8-7.7); NEUTROPHILS % 47.3 % (36.0-66.0); PLATELET COUNT, AUTOMATED 262 k/mm3 (150-450); RED CELL DISTRIBUTION WIDTH 13.2 % (11.5-14.5); WHITE BLOOD COUNT 6.6 K/mm3 (4.0-10.0)
[2016-06-09 13:17] LABS: ANION GAP 8 MEQ/L (8-16); BLOOD UREA NITROGEN 16 MG/DL (7-18); CALCIUM LEVEL 8.9 MG/DL (8.8-10.2); CARBON DIOXIDE LEVEL 29 MEQ/L (21-32); CHLORIDE LEVEL 102 MEQ/L (98-107); CREATININE FOR GFR 0.99 MG/DL (0.70-1.30); GLOMERULAR FILTRATION RATE > 60.0 (>49); GLUCOSE, FASTING 79 MG/DL (80-110); POTASSIUM SERUM 4.5 MEQ/L (3.5-5.1); SODIUM LEVEL 139 MEQ/L (136-145)
[2016-06-09 13:39] LABS: ERYTHROCYTE SEDIMENTATION RATE 7 mm/hr (0-20)
== END ==
LOC: M SFHCPLAZ 09:11
PROVIDERS: ATTEND Internal Medicine Infectious Disease
DX: A49.02 Methicillin resistant Staphylococcus aureus infection, unspecified site (principal)
CPT/HCPCS: 36415; 80048; 85025; 85652; 86140; G0463

== ENCOUNTER → 2016-08-06 | Day surgery (SDC) | payer MEDICARE ==
[~2016-08-06] VITALS: Ht 172.7 cm; Wt 117.9 kg
[~2016-08-06] MED LIST changes: +ACETAMINOPHEN 325 MG TAB PO PRN; +ACETYLCHOLINE OPHTH SOLN 1% 2ML As Ordered ONE; +AcetaZOLAMIDE 500 MG ER CAP PO ONE; +BALANCED SALT IRRIGATION SOLUTION 500ML BAG (FOR OR EYE MACHINE) As Ordered ONE; +CEFUROXIME 1MG/0.1ML INTRACAMERAL INJ As Ordered ONE; +CYCLOPENTOLATE 2% OPHTH SOLN OD ONE; +D5W/0.2% SODIUM CHLORIDE 250 ML IV SCH; +GABA-282 PO; -GABA300C3 PO; +HEALON DUET (HEALON 10MG/ML 0.55ML & HEALON ENDOCOAT 30MG/ML 0.85ML) As Ordered ONE; +KETOROLAC 0.5% OPHTH SOLN OD ONE; +LIDOCAINE 1% SDV 5 ML VIAL As Ordered ONE; +LIDOCAINE 4% INJ 5 ML AMP OU ONE; +MIDAZOLAM INJ 2 MG/2 ML VIAL (J2250) As Ordered ONE; +NORC1TAB4 PO; -NORC5TAB PO; +OFLOXACIN 0.3 % (OCUFLOX) OPTH SOL 5ML OD ONE; +PHENYLEPHRINE 2.5% OPHTH SOL 2ML OD ONE; +POVIDONE-IODINE 5% OPHTH PREP SOL 30ML As Ordered ONE; +PROPARACAINE 0.5% OPHTH SOL 15ML OD PRN; +TRIMETHOBENZAMIDE 300 MG CAP PO PRN; +TROPICAMIDE 1% OPHTH SOLN 2 ML OD ONE; +fentaNYL 100 MCG/2 ML INJECTION (J3010) As Ordered ONE
[2016-08-06 09:35] VITALS: BP 129/62
--- NOTE | 2016-08-06 10:09 | RO ---
DATE OF PROCEDURE: 08/06/2016 PREPROCEDURE DIAGNOSIS: Age related nuclear cataract right eye. POSTPROCEDURE DIAGNOSIS: Age related nuclear cataract right eye. PROCEDURE: Phacoemulsification and posterior chamber intraocular lens implantation right eye. The lens used was U0020, 20.5 diopter. SURGEON: Karolina Zamora MD [employer] AIR OPERATOR: ANESTHESIA: Topical with sedation. DESCRIPTION OF PROCEDURE: The patient was prepped and draped in the usual fashion. A lid speculum was placed between the lids. The eye was fixated. A stab incision was made to the anterior chamber, and 1% non-preserved lidocaine was instilled. Then, viscoelastic was instilled. The eye was re-fixated. A 2.75 mm sapphire keratome was used to make a clear corneal temporal limbal incision. Capsulorrhexis was begun with a 30-gauge bent needle and then carried out in a circular fashion with capsulorrhexis forceps. The lens was hydrodissected, and then the phacoemulsification unit was used to make a groove in the nucleus in two meridians. The nucleus was then cracked into four quadrants. Each quadrant was removed with the phacoemulsification unit. Any remaining cortex was removed with the irrigation and aspiration (I and A) unit. Capsular bag was refilled with viscoelastic. A posterior chamber intraocular lens was placed in the capsular bag without difficulty. Any remaining viscoelastic was removed with the I and A unit. The wound was hydrated, and Miochol and cefuroxime were instilled into the anterior chamber. The patient tolerated the procedure well and went to the recovery room in stable condition.
== END | disposition home or self-care (01) ==
LOC: M SDC 07:51
PROVIDERS: ATTEND Ophthalmology
DX: H25.11 Age-related nuclear cataract, right eye (principal); I10 Essential (primary) hypertension; G47.30 Sleep apnea, unspecified; E78.5 Hyperlipidemia, unspecified; Z85.46 Personal history of malignant neoplasm of prostate; Z87.891 Personal history of nicotine dependence; Z79.82 Long term (current) use of aspirin; Z79.899 Other long term (current) drug therapy
CPT/HCPCS: 66984; J2250; J3010; V2632

== ENCOUNTER → 2016-11-13 | Outpatient (REF) | payer MEDICARE ==
[~2016-11-13] MED LIST changes: -ACETAMINOPHEN 325 MG TAB PO PRN; -ACETYLCHOLINE OPHTH SOLN 1% 2ML As Ordered ONE; -AcetaZOLAMIDE 500 MG ER CAP PO ONE; -BALANCED SALT IRRIGATION SOLUTION 500ML BAG (FOR OR EYE MACHINE) As Ordered ONE; -CEFUROXIME 1MG/0.1ML INTRACAMERAL INJ As Ordered ONE; -COUM2.5T11 PO; +COUM2.5T17 PO; -CYCLOPENTOLATE 2% OPHTH SOLN OD ONE; -D5W/0.2% SODIUM CHLORIDE 250 ML IV SCH; -HEALON DUET (HEALON 10MG/ML 0.55ML & HEALON ENDOCOAT 30MG/ML 0.85ML) As Ordered ONE; -KETOROLAC 0.5% OPHTH SOLN OD ONE; -LIDOCAINE 1% SDV 5 ML VIAL As Ordered ONE; -LIDOCAINE 4% INJ 5 ML AMP OU ONE; -MIDAZOLAM INJ 2 MG/2 ML VIAL (J2250) As Ordered ONE; -OFLOXACIN 0.3 % (OCUFLOX) OPTH SOL 5ML OD ONE; +PERC5TAB12 PO; -PERC5TAB6 PO; -PHENYLEPHRINE 2.5% OPHTH SOL 2ML OD ONE; -POVIDONE-IODINE 5% OPHTH PREP SOL 30ML As Ordered ONE; -PROA1AER INH; +PROAAER10 INH; -PROPARACAINE 0.5% OPHTH SOL 15ML OD PRN; -TRIMETHOBENZAMIDE 300 MG CAP PO PRN; -TROPICAMIDE 1% OPHTH SOLN 2 ML OD ONE; -fentaNYL 100 MCG/2 ML INJECTION (J3010) As Ordered ONE
== END ==
LOC: M LAB REF 16:22
PROVIDERS: ATTEND Internal Medicine
DX: Z11.59 Encounter for screening for other viral diseases (principal); L81.8 Other specified disorders of pigmentation

== ENCOUNTER → 2017-06-25 | Outpatient (REF) | payer MEDICARE ==
[2017-06-26 08:19] LABS: LDL DIRECT 163 mg/dL (0-99)
== END ==
LOC: M LAB REF 12:24
DX: E78.5 Hyperlipidemia, unspecified (principal)
CPT/HCPCS: 83721

== ENCOUNTER → 2017-10-30 | Outpatient (REF) | payer MEDICARE ==
[2017-11-03 00:08] LABS: HERPES ZOSTER, VARICELLA IgG 789 index (Immune >165)
== END ==
LOC: M LAB REF 17:11
DX: Z20.820 Contact with and (suspected) exposure to varicella (principal)
CPT/HCPCS: 86787

== ENCOUNTER → 2018-04-26 | Outpatient (RCR) | payer MEDICARE ==
[~2018-04-26] MED LIST changes: -AMLO5TAB2 PO; +AMLO5TAB4 PO; -GABA-282 PO; -GABA-283 PO; +GABA-843 PO; +GABA-845 PO
== END ==
LOC: M PT 04-09 10:18
PROVIDERS: ATTEND Orthopaedic Surgery
DX: M75.102 Unspecified rotator cuff tear or rupture of left shoulder, not specified as traumatic (principal)
CPT/HCPCS: 97110; 97161; G8984; G8985

== ENCOUNTER → 2018-05-27 | Outpatient (RCR) | payer MEDICARE ==
[~2018-05-27] MED LIST changes: -AMLO5TAB4 PO; +AMLO5TAB6 PO
== END ==
LOC: M PT 04-30 10:52
PROVIDERS: ATTEND Orthopaedic Surgery
DX: Z47.89 Encounter for other orthopedic aftercare (principal); M25.512 Pain in left shoulder; M75.102 Unspecified rotator cuff tear or rupture of left shoulder, not specified as traumatic

== ENCOUNTER 2018-06-03 09:45 | Outpatient (RCR) | payer MEDICARE | END 2018-06-24 | LOC: M PT 09:45 | PROVIDERS: ATTEND Orthopaedic Surgery | DX: Z47.89 Encounter for other orthopedic aftercare (principal); Z98.890 Other specified postprocedural states; M25.512 Pain in left shoulder; M75.102 Unspecified rotator cuff tear or rupture of left shoulder, not specified as traumatic ==

== ENCOUNTER → 2018-06-09 | Outpatient (CLI) | payer MEDICARE ==
--- NOTE | 2018-06-14 11:00 | SLEEPCENT ---
DATE OF STUDY: 06/09/2018 ORDERING PROVIDER: LUCIO Flower Nocturnal polysomnography was performed for the retitration of pressure therapy in this patient with obstructive sleep apnea syndrome. For testing, the patient was fit with a [employer] Quattro Mirage full face mask. 15 cm of water pressure was initially applied to the circuit, and the lights were extinguished. 7 hours and 43 minutes of data were reviewed. There were 386 minutes of sleep identified. Sleep latency was prolonged at 14 minutes. Rapid eye movement (REM) latency was normal at 67 minutes. Sleep architecture was fairly good. Overall sleep efficiency was 84.3% The patient's electrocardiogram showed a sinus rhythm with an average heart rate of 78 beats per minute. Occasional premature ventricular contractions (PVCs) were seen. Electroencephalogram (EEG) showed normal waveforms for awake and sleep. Persistent respiratory events prompted an increase in continuous positive airway pressure (CPAP) pressure to 20. On retrospective review, some hypopneic ventilatory events occurred even at this pressure. Best sleep, however, was seen on a CPAP pressure of 20 cm. There was significant limb activity noted, particularly early in the study. Limb movement arousal index was 17.4. IMPRESSION: 1. Obstructive sleep apnea syndrome (G47.33). 2. Possible periodic limb movement disorder (G47.61). Limb movement arousal index 17.4. RECOMMENDATION: The patient's obstructive respiratory events are fairly well palliated with CPAP at a pressure of +20. Further titration was not possible due to the late hour in testing. Interventions to reduce the frequency arousal from limb activity may be helpful and should the patient's sleep symptoms persist, it may be necessary to perform retitration and consider bilevel device to further address any respiratory disruption. [facility]
== END ==
LOC: M SLEEP 19:33
PROVIDERS: ATTEND Nurse Practitioner Adult Health
DX: G47.33 Obstructive sleep apnea (adult) (pediatric) (principal); G47.61 Periodic limb movement disorder

== ENCOUNTER → 2018-11-01 | Outpatient (REF) | payer MEDICARE ==
[~2018-11-01] MED LIST changes: -NORC1TAB4 PO; +NORC1TAB7 PO; -VALS1TAB47 PO; +VALS1TAB67 PO
[2018-11-03 10:06] LABS: LDL DIRECT 82 mg/dL (0-99)
== END ==
LOC: M LAB REF 16:35
PROVIDERS: ATTEND Internal Medicine
DX: E78.5 Hyperlipidemia, unspecified (principal)

== ENCOUNTER 2019-01-03 07:51 | Day surgery (SDC) | payer MEDICARE ==
[~2019-01-03] VITALS: Ht 172.7 cm; Wt 126.0 kg
[~2019-01-03 07:51] MED LIST changes: +NS 1,000 ML IV ONE; +OMEGCAP4 PO
[2019-01-03] MEDS ORDERED: PROPOFOL 200 MG/20 ML VIAL As Ordered ONE ×2 (08:40→09:58)
[2019-01-03] MEDS ORDERED: LIDOCAINE 2% INJ 100 MG/5 ML SDV (FOR ANES.) As Ordered ONE (08:40)
[2019-01-03] MEDS ORDERED: GLUCAGON FOR INJ 1 MG VIAL (J1610) As Ordered ONE (09:55)
--- NOTE | 2019-01-03 10:00 | ROOR ---
Patient Name: Chencho Newman Procedure Date: 01/03/2019 9:33 AM Date of : 1955 Age: 63 Room: [facility] Gender: Male Note Status: Finalized Procedure: Colonoscopy Indications: High risk colon cancer surveillance: Personal history of colonic polyps, Last colonoscopy: November 2013 Providers: David GUTIERRES MD Referring MD: Nicolette Frazier DO Requesting Provider: Medicines: Monitored Anesthesia Care Complications: No immediate complications. Procedure: Pre-Anesthesia Assessment: - The heart rate, respiratory rate, oxygen saturations, blood pressure, adequacy of pulmonary ventilation, and response to care were monitored throughout the procedure. The Colonoscope was introduced through the anus and advanced to the cecum, identified by appendiceal orifice and ileocecal valve. The colonoscopy was performed without difficulty. The patient tolerated the procedure well. The quality of the bowel preparation was fair and 20 percent obscured. Findings: The perianal and digital rectal examinations were normal. Two sessile polyps were found in the sigmoid colon and cecum. The polyps were 3 to 5 mm in size. These polyps were removed with a cold snare. Resection and retrieval were complete. Impression: - Preparation of the colon was fair. - Two 3 to 5 mm polyps in the sigmoid colon and in the cecum, removed with a cold snare. Resected and retrieved. - No additional abnormalities were found on retroflexion. Recommendation: - Repeat colonoscopy in 2 years because the bowel preparation was suboptimal and for surveillance. David Gutierres MD David GUTIERRES MD 01/03/2019 10:00:08 AM Electronically signed by David GUTIERRES MD Number of Addenda: 0 Note Initiated On: 01/03/2019 9:33 AM Estimated Blood Loss: Estimated blood loss: none.
[2019-01-03 10:20] VITALS: BP 186/96
== END 2019-01-03 10:29 | disposition home or self-care (01) ==
LOC: M OPP 07:51
PROVIDERS: ATTEND Internal Medicine Gastroenterology
DX: Z12.11 Encounter for screening for malignant neoplasm of colon (principal); Z86.010 Personal history of colon polyps; D12.5 Benign neoplasm of sigmoid colon; D12.0 Benign neoplasm of cecum; G47.30 Sleep apnea, unspecified; Z79.82 Long term (current) use of aspirin; Z79.899 Other long term (current) drug therapy; F17.210 Nicotine dependence, cigarettes, uncomplicated

== ENCOUNTER → 2019-08-23 | Outpatient (REF) | payer MEDICARE ==
[~2019-08-23] MED LIST changes: -NS 1,000 ML IV ONE
== END ==
LOC: M LAB REF 18:17
PROVIDERS: ATTEND Dermatology
DX: D04.0 Carcinoma in situ of skin of lip (principal); D22.62 Melanocytic nevi of left upper limb, including shoulder; L82.1 Other seborrheic keratosis

== ENCOUNTER → 2019-09-01 | Outpatient (REF) | payer MEDICARE, OTHER | LOC: M LAB REF 07:51 | PROVIDERS: ATTEND Dermatology | DX: D23.62 Other benign neoplasm of skin of left upper limb, including shoulder (principal) ==

== ENCOUNTER → 2019-09-15 | Outpatient (REF) | payer MEDICARE, OTHER | LOC: M LAB REF 14:17 | PROVIDERS: ATTEND Dermatology | DX: L90.5 Scar conditions and fibrosis of skin (principal); L57.8 Other skin changes due to chronic exposure to nonionizing radiation ==

== ENCOUNTER → 2020-06-20 | Outpatient (REF) | payer MEDICARE ==
[~2020-06-20] MED LIST changes: +AMLO1TAB24 PO; -AMLO5TAB6 PO; -ASPI81TA85 PO; +ASPI81TA86 PO; +GABA-282 PO; -GABA-843 PO
== END ==
LOC: M LAB REF 12:39
PROVIDERS: ATTEND Orthopaedic Surgery
DX: M65.142 Other infective (teno)synovitis, left hand (principal)

== ENCOUNTER → 2020-06-20 | Outpatient (CLI) | payer MEDICARE ==
--- NOTE | 2020-06-22 00:39 | ECGEPIP ---
[facility] Test Date: 2020-06-20 Pat Name: DERICK MILLER Department: Room: - Gender: Male Surgical Rn: CHERRI : 1955 Requested By: Quang Pryor Order Number: [id number] Reading MD: Jose G Desir Measurements Intervals Polo Rate: 78 P: 59 ID: [id number] QRS: 25 QRSD: 102 T: -9 QT: 360 QTc: 410 Interpretive Statements Normal sinus rhythm Compared to prior tracings (2) in the system, no significant changes Electronically Signed on 06-22-2020 0:39:18 EST by Jose G Desir
== END ==
LOC: M EKG 11:07
PROVIDERS: ATTEND Orthopaedic Surgery
DX: Z01.810 Encounter for preprocedural cardiovascular examination (principal)

== ENCOUNTER → 2020-06-21 | Outpatient (REF) | payer MEDICARE | LOC: M LAB REF 14:59 | PROVIDERS: ATTEND Orthopaedic Surgery | DX: L02.512 Cutaneous abscess of left hand (principal) ==

== ENCOUNTER → 2020-09-06 | Outpatient (REF) | payer MEDICARE ==
[~2020-09-06] MED LIST changes: +GABA-283 PO; -GABA-845 PO
== END ==
LOC: M LAB REF 12:22
PROVIDERS: ATTEND Internal Medicine
DX: E78.5 Hyperlipidemia, unspecified (principal)

== ENCOUNTER → 2021-04-29 | Outpatient (CLI) | payer MEDICARE ==
[~2021-04-29] MED LIST changes: +ACET650T61 PO; +ATOR1TAB19 PO; +FURO20TA2 PO; +HYDR-3713 PO; +IRBE150T7 PO
== END ==
LOC: M LABSMTC 11:47
PROVIDERS: ATTEND Anesthesiology
DX: Z01.818 Encounter for other preprocedural examination (principal); Z11.52 Encounter for screening for COVID-19

== ENCOUNTER → 2021-08-22 | Outpatient (REF) | payer MEDICARE | LOC: M LAB REF 16:22 | PROVIDERS: ATTEND Internal Medicine | DX: S81.809D Unspecified open wound, unspecified lower leg, subsequent encounter (principal) ==

== ENCOUNTER → 2021-09-11 | Outpatient (CLI) | payer MEDICARE | LOC: M WUC 10:44 | PROVIDERS: ATTEND Nurse Practitioner Adult Health | DX: R06.2 Wheezing (principal) ==

== ENCOUNTER → 2021-11-11 | Outpatient (REF) | payer MEDICARE | LOC: M LAB REF 16:12 | PROVIDERS: ATTEND Internal Medicine | DX: E78.5 Hyperlipidemia, unspecified (principal) ==

== ENCOUNTER → 2022-01-31 | Outpatient (REF) | payer MEDICARE | LOC: M LAB REF 16:16 | PROVIDERS: ATTEND Internal Medicine | DX: S81.811A Laceration without foreign body, right lower leg, initial encounter (principal) ==

== ENCOUNTER → 2022-07-14 | Outpatient (REF) | payer MEDICARE | LOC: M SFHCDERM 13:55 | PROVIDERS: ATTEND Physician Assistant | DX: C44.01 Basal cell carcinoma of skin of lip (principal) ==

== ENCOUNTER → 2023-08-12 | Outpatient (CLI) | payer MEDICARE ==
[~2023-08-12] MED LIST changes: -GABA-283 PO; +GABA-284 PO; +IRBE150T27 PO; -IRBE150T7 PO; +METHACHOLINE KIT (6 VIAL.NEB PREMIX) INH ONE
== END ==
LOC: M CARPUL 12:42
PROVIDERS: ATTEND Internal Medicine
DX: J45.909 Unspecified asthma, uncomplicated (principal)
CPT/HCPCS: 94070; 95070; J7674

== ENCOUNTER → 2023-12-14 | Outpatient (REF) | payer MEDICARE ==
[~2023-12-14] MED LIST changes: -METHACHOLINE KIT (6 VIAL.NEB PREMIX) INH ONE
== END ==
LOC: M LAB REF 16:14
PROVIDERS: ATTEND Internal Medicine
DX: L03.115 Cellulitis of right lower limb (principal)

== ENCOUNTER → 2024-07-19 | Outpatient (REF) | payer MEDICARE ==
[~2024-07-19] MED LIST changes: +GABA-1172 PO; -GABA-282 PO
[2024-07-20 10:28] LABS: LDL DIRECT 97 mg/dL (<100)
== END ==
LOC: M LAB REF 12:17
PROVIDERS: ATTEND Internal Medicine
DX: E78.5 Hyperlipidemia, unspecified (principal)

== ENCOUNTER → 2024-07-28 | Outpatient (CLI) | payer MEDICARE | LOC: M RAD 09:07 | PROVIDERS: ATTEND Internal Medicine | DX: Z13.6 Encounter for screening for cardiovascular disorders (principal); I10 Essential (primary) hypertension; F17.200 Nicotine dependence, unspecified, uncomplicated ==

== ENCOUNTER → 2024-09-14 | Outpatient (CLI) | payer MEDICARE | LOC: M RAD 11:20 | PROVIDERS: ATTEND Internal Medicine | DX: Z87.891 Personal history of nicotine dependence (principal) ==

== ENCOUNTER → 2025-02-14 | Outpatient (CLI) | payer MEDICARE ==
[~2025-02-14] MED LIST changes: +ACET-683 PO; +ATOR1TAB21 PO; +DULO1CAP5 PO; +EZET10TA57 PO; +IBUP-359 PO; +LIDO5TD TD
== END ==
LOC: M WUC 11:14
PROVIDERS: ATTEND Internal Medicine
DX: R06.2 Wheezing (principal); R05.9 Cough, unspecified; S22.41XA Multiple fractures of ribs, right side, initial encounter for closed fracture; X58.XXXA Exposure to other specified factors, initial encounter; Y92.9 Unspecified place or not applicable; Y93.9 Activity, unspecified; Y99.9 Unspecified external cause status